=== PATIENT | female | born 1995 | race Hispanic/Latino ===

== ENCOUNTER 2020-09-18 17:52 | Emergency (ER) | payer OTHER, SELFPAY ==
[2020-09-18 18:01] VITALS: BP 134/87; PULSE 71; RESP 16; TEMP 36.8; O2SAT 97; BMI 32.0
--- NOTE | 2020-09-18 18:04 | ED.URI ---
HPI - URI/Sore Throat General Chief Complaint: Upper Respiratory Symptoms Stated Complaint: tonsils causing airway to close up Time Seen by Provider: 09/18/20 17:59 Source: patient Mode of arrival: Ambulatory Limitations: no limitations History of Present Illness HPI Narrative: 24-year-old female nonsmoker with noncontributory medical history presents from the walk-in clinic for evaluation. She has had 2-3 days of worsening sore throat, difficulty swallowing. She has had no runny nose, sneezing or cough. She has had no fever. She denies nausea or vomiting. She is eating and drinking without difficulty and has no respiratory complaints. MD Complaint: sore throat Onset (ago): day(s) Duration: constant Severity: moderate Relieving factors: nothing Exacerbating factors: swallowing Description of mucous: clear Able to tolerate fluids by mouth: Yes Associated symptoms: denies other symptoms Treatments prior to arrival: none Related Data Home Medications Medication Instructions Recorded Confirmed escitalopram oxalate 10 mg tablet 10 mg PO DAILY 09/18/20 09/18/20 Previous Rx's Medication Instructions Recorded ketorolac 10 mg PO Q6H PRN #14 tab 09/18/20 penicillin V potassium 500 mg PO BID #20 tab 09/18/20 Allergies Allergy/AdvReac Type Severity Reaction Status Date / Time No Known Drug Allergies Allergy Unverified 09/18/20 17:10 Review of Systems Constitutional Constitutional: Denies chills, Denies fatigue, Denies fever(s), Denies frequent falls, Denies lethargy and Denies weakness Eyes Eyes: Denies change in vision, Denies eye discharge, Denies irritation and Denies loss of vision ENT Ears, Nose, Mouth, and Throat: Denies change in voice, Denies dizziness, Denies neck pain, Reports sore throat and Reports throat swelling Cardiovascular Cardiovascular: Denies chest pain, Denies irregular heart rhythm, Denies lightheadedness, Denies palpitations, Denies dyspnea, Denies dyspnea on exertion and Denies orthopnea Respiratory Respiratory: Denies cough, Denies dyspnea, Denies dyspnea on exertion and Denies wheezing Gastrointestinal Gastrointestinal: Denies abdominal pain, Denies change in bowel habits, Denies diarrhea, Denies nausea and Denies vomiting Musculoskeletal Musculoskeletal: Denies neck pain and Denies numbness Integumentary/Breasts Skin/Breast: Denies pruritus, Denies erythema, Denies rash and Denies wounds Neurologic Neurologic: Denies behavioral changes, Denies confusion, Denies dizziness, Denies frequent falls, Denies loss of vision, Denies numbness and Denies weakness Psychiatric Psychiatric: Denies anxiety, Denies behavioral changes, Denies confusion, Denies depression, Denies homicidal ideation and Denies suicidal ideation Endocrine Endocrine: Denies fatigue, Denies flushing and Denies palpitations Hematologic/Lymphatic Hematologic/Lymphatic: Denies easy bruising Allergic/Immunologic Allergic/Immunologic: Denies urticaria, Reports throat swelling and Denies wheezing Patient History Medical History (Updated 09/18/20 @ 18:26 by Dung Alaniz DO) No active medical problems Social History Smoking Status: Current every day smoker Smoking Status: Current every day smoker alcohol intake frequency: holidays/special occasions only Substance Use Type: does not use Exam Narrative Exam Narrative: GEN: AOx3 and in mild distress EYES: Pupils are equal, round, and reactive to light and accommodation. Extraoccular muscles are intact bilaterally. There is no subconjunctival hemorrhage or exudate. ENT: Grade 4 tonsillar swelling, no erythema or exudate. Airway patent. Uvula midline. No obvious suggestion of CUSTOMER ACCOUNT REPRESENTATIVE. No neck swelling. No cervical lymphadenopathy. B/L TMs infante with normal landmarks, possible small left sided effusion. CHEST: Lungs are clear to auscultation bilaterally and free of wheezes, rales, or rhonchi. Heart rate is regular rhythm, there are no murmurs, clicks, rubs, or gallops. There is no chest wall tenderness. ABD: Abdomen is soft and nontender. There is no guarding or rebound. Bowel sounds are normal in all 4 quadrants. There is no mass or organomegaly. EXT: Full painless ROM of all extremities with no loss of sensation or strength. SKIN: Warm, pink, and dry. No erythema or rash Initial Vital Signs Initial Vital Signs: Vital Signs Temperature 98.2 F 09/18/20 18:01 Pulse Rate 71 09/18/20 18: Respiratory Rate 16 09/18/20 18:01 Blood Pressure 134/87 09/18/20 18:01 Pulse Oximetry 97 09/18/20 18:01 Course Course Course Narrative: patient tolerating oral hydration without trouble. No airway involvement. Stable vitals. No signs of sepsis. Very low suspicion of retropharyngeal or peritonsillar abscess based on exam extensive return precautions given and questions answered to her apparent satisfaction Orders Ordered: Discontinued Medications Dexamethasone (Dexamethasone 10 Mg/Ml Vial) 10 mg PO NOW ONE Stop: 09/18/20 18:21 Last Admin: 09/18/20 18:37 Dose: 10 mg Documented by: ALFONZO Penicillin V Potassium (Penicillin 250 Mg Tab Prepack) 1 bottle MISC SEEINSTR ONE Stop: 09/18/20 18:27 Last Admin: 09/18/20 18:37 Dose: 1 bottle Documented by: ALFONZO Vital Signs Vital signs: Vital Signs - 8 hr 09/18/20 18:01 Temperature 98.2 F Pulse Rate 71 Respiratory Rate 16 Blood Pressure 134/87 Pulse Oximetry 97 Discharge Plan Departure Patient Disposition: Home Clinical Impression: Tonsillar hypertrophy Pharyngitis Qualifiers: Pharyngitis/tonsillitis etiology: unspecified etiology Qualified Code(s): J02.9 - Acute pharyngitis, unspecified Instructions: DI for Pharyngitis/Tonsillopharyngitis -- Adult Activity Restrictions/Additional Instructions: *You have been diagnosed with [ tonsillitis, likely bacterial. ] *What to do: *Take medications as directed: Prescriptions sent to [facility] at your request. *Follow up with your primary care provider in 2-3 days, call for an appointment. Let them know you were seen in the Emergency Department and that we ask that you be seen in follow up *Return to ER if you should have any new, worsening or concerning symptoms, such as [trouble breathing, inability to swallow, persistent vomiting or other bothersome ] Prescriptions: New penicillin V potassium 500 mg tablet 500 mg PO BID Qty: 20 RF: 0 ketorolac 10 mg tablet 10 mg PO Q6H PRN (Reason: pain) Qty: 14 RF: 0 No Action escitalopram oxalate [Lexapro] 10 mg tablet 10 mg PO DAILY RF: 0 Referrals: Miscellaneous,Doctor, MD [Primary Care Provider] - Stand Alone Forms: Work Release Note
[2020-09-18] MEDS: PENICILLIN 250 MG TAB PREPACK 1 BOTTLE MISC (18:37)
[2020-09-18] MEDS: DEXAMETHASONE 10 MG/ML VIAL PO (18:37)
== END 2020-09-18 18:48 | disposition home or self-care (01) ==
PROVIDERS: Emergency Provider Emergency Medicine
DX: J02.9 Acute pharyngitis, unspecified (principal); Z20.822 Contact with and (suspected) exposure to COVID-19
CPT/HCPCS: 87070; 87635; 99281; 99283; J1100

== ENCOUNTER 2020-10-04 15:08 | Emergency (ER) | payer OTHER, SELFPAY ==
[2020-10-04 15:15] VITALS: BP 159/97; PULSE 91; RESP 18; TEMP 36.9; O2SAT 100
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
[2020-10-04 17:59] VITALS: BP 142/80; PULSE 90; RESP 16; O2SAT 96
--- NOTE | 2020-10-04 18:00 | PC.NURSE ---
Pt provided labeled paper sacks for clothing.
== END 2020-10-04 18:01 | disposition home or self-care (01) ==
PROVIDERS: Emergency Provider Emergency Medicine
DX: T76.21XA Adult sexual abuse, suspected, initial encounter (principal)
CPT/HCPCS: 99284

== ENCOUNTER → 2021-01-14 10:02 | Outpatient (CLI) | payer OTHER, SELFPAY ==
[2021-01-14 10:53] LABS: COVID19 -Nasal RAPID Negative (Negative)
== END ==
PROVIDERS: PCP Internal Medicine; Visit Provider Physician Assistant
DX: Z20.822 Contact with and (suspected) exposure to COVID-19 (principal)
CPT/HCPCS: 87635

== ENCOUNTER 2021-01-15 08:48 | Day surgery (SDC) | payer OTHER, SELFPAY ==
[2021-01-15] VITALS (12 sets, daily range): BP systolic 113–153; BP diastolic 73–97; PULSE 72–115; RESP 12–18; TEMP 36.6–37.4; O2SAT 88–100; BMI 31.8
[2021-01-15] MEDS: ACETAMINOPHEN 325 MG TABLET 975 MG PO (09:54)
[2021-01-15] MEDS: LACTATED RINGERS 1,000 ML 42 ML IV ×2 (09:55→12:32)
--- NOTE | 2021-01-15 10:34 | P.HP_ITS ---
History of Present Illness History of Present Illness Date Patient Seen: 01/15/21 Time Patient Seen: 10:35 Chief complaint: Chronic tonsillitis Narrative: 25-year-old female with chronic tonsillitis, respiratory obstruction and tonsillar hypertrophy, incompletely managed with medical therapy presents for tonsillectomy and possible adenoidectomy. She was last seen in clinic 11/05/2020, negative interval Holter monitor for any cardiac disease, cleared by Cardiology. Following discussion of the material risks benefits complications and alternatives, she elected to proceed. No recent cough, cold, or fever. No smoking or vaping. Patient History Medical History Anxiety Heart murmur No active medical problems Surgical History [place] teeth removed Family & Social History Social History: household members none Tobacco & Substance use: Smoking Status Never smoker alcohol intake current alcohol intake frequency holiday/special occasion Substance Use Type does not use Meds Home Medications and Allergies Home Medications Medication Instructions Recorded Confirmed Type escitalopram oxalate 10 mg tablet 20 mg PO DAILY 09/18/20 01/15/21 History etonogestrel [Nexplanon] See Rx Instructions .ROUTE .COMPLEX 01/15/21 01/15/21 History Allergies Allergy/AdvReac Type Severity Reaction Status Date / Time No Known Drug Allergies Allergy Verified 10/04/20 15:30 Review of Systems Review of Systems ROS: Yes All systems reviewed with the patient and are negative except as otherwise documented Exam Vital Signs (past 8 hours): - 01/15/21 10:00 Temperature 97.8 F Pulse Rate 75 Respiratory Rate 16 Blood Pressure 129/81 Pulse Oximetry 99 Oxygen Delivery Method Room Air Oxygen Flow Rate 0 Narrative Exam Narrative: Well-developed well-nourished female in no acute distress. 3+ right tonsil 2 to 3+ left. Heart regular rate and rhythm without murmur, lungs clear to auscultation bilaterally. Assessment & Plan Assessment & Plan narrative: Assessment: 1. Chronic tonsillitis 2. Upper airway obstruction 3. Tonsillar hypertrophy 4. Throat pain Plan: Following discussion of the material risks benefits complications and alternatives, the patient elected to proceed with tonsillectomy and possible adenoidectomy.
--- NOTE | 2021-01-15 10:34 | PM.PREOP ---
Pre-operative Note COVID-19 COVID-19 status: Result pending Interval Note History & Physical reviewed/Exam performed by Physician: Yes Changes to H&P: No
--- NOTE | 2021-01-15 10:37 | PM.OP.1 ---
Operative Date/Time/Diagnoses Date of procedure: 01/15/21 Time of procedure: 11:28 Pre-op diagnosis: Chronic tonsillitis, upper airway obstruction, tonsillar hypertrophy, throat pain Post-op diagnosis: same (Mild adenoid hypertrophy) Procedure & Clinicians Procedure: Tonsillectomy and adenoidectomy Same procedure as scheduled: Yes Indications: 25-year-old female with the above diagnoses, incompletely managed with medical therapy, presents to the above procedure. Following discussion of the material risks benefits complications and alternatives, she elected to proceed. Surgeon: Jorge Morelos Click Yes if Unassisted: Yes Anesthesia Type: General and Local Operative Notes Findings: Intact palate, bifid uvula, 3+ tonsils, 1+ adenoid tissue Closure Type: not applicable Specimen(s): none sent Estimated Blood Loss (mL): 20 Blood products transfused: none Procedure in detail: Following identification and confirmation of consent the patient was brought to the operating room suite and placed in the supine position. General endotracheal anesthesia was administered. A head wrap, shoulder roll, and mouth gag were placed and a red rubber catheter was inserted through the nostril and out the mouth to retract the soft palate. Minimally adenoid tissue was ablated with suction electrocautery on a setting of 40, without injury to the eustachian tube orifices or choana. The left tonsil was retracted medially and suction electrocautery on a setting of 30 was used to dissect the tonsil in a subcapsular plane, followed by hemostasis with the same. This process was repeated on the right side with identical findings. The tonsillar fossae were superficially infiltrated bilaterally with a 1:1 mixture of 1% lidocaine 1 100,000 epinephrine and 0.25% Marcaine 1 to [id number] epinephrine. Mouth gag and rubber catheter were removed and the patient was extubated in the operating room and taken to the recovery room in stable condition without known complication. Complications: none Post-operative Condition: stable Disposition: same day surgery Plan for aftercare: Tylenol alternating with Advil every 3 hours for pain control, oxycodone for breakthrough pain. Push fluids, no heavy lifting or straining for 2 weeks, soft diet 2 weeks.
--- NOTE | 2021-01-15 11:02 | SUR.OPER ---
Supine on padded OR bed, head on pillow, arms secured on padded arm boards at <90 degrees abduction, legs uncrossed, safety belt at thigh, tape over blanket over lower legs.
[2021-01-15] MEDS: BUPIVACAINE 0.25% W/ EPI 30 ML VIAL INJ (11:17)
[2021-01-15] MEDS: LIDOCAINE 1% W/EPI 20 ML INJ (11:17)
[2021-01-15] MEDS: OXYMETAZOLINE NASAL SPRAY 15 ML 2 SPRAYS NASAL (11:18)
[2021-01-15] MEDS: MEPERIDINE 50 MG/ML INJ 12.5 MG IV (11:50)
[2021-01-15] MEDS: NALOXONE 0.4 MG/ML VIAL IV (11:55)
--- NOTE | 2021-01-15 12:00 | SUR.PHASEI ---
1152 pt. began to violently shake and turn her head to the left one minute after receiving 12.5mg IV demerol. Pt. was nonresponsive and her eyes were rolled back. Extra help called to beside, anesthesia, surgeon, nurses and ancillary staff at bedside. Sternal rub provided no response from pt. blood sugar at 1155 97. face mask applied at 15ml and o2 100. pt. had PERLLA when checked by anesthesia at 1156 or so. pt. spontaneously awoke and was able to focus on staff and answer questions. ongoing monitoring.
[2021-01-15 12:19] LABS: Add Manual Diff / Slide Review NO; Basophils Absolute Auto 0 /uL (0-100); Basophils Percent Auto 0.4 % (0-2); Eosinophils Absolute Auto 0 /uL (0-450); Eosinophils Percent Auto 0.8 % (2-4); Hematocrit 37.3 % (36-46); Hemoglobin 12.3 g/dL (12.0-16.0); Lymphocytes Absolute Auto 2100 /uL (1100-4500); Lymphocytes Percent Auto 32.5 % (25-40); Mean Corpuscular HGB Conc 32.9 % (30-36); Mean Corpuscular Hemoglobin 30.3 PG (26-34); Mean Corpuscular Volume 92.2 fL (80-100); Monocytes Absolute Auto 400 /uL (0-900); Monocytes Percent Auto 5.8 % (3-14); Neutrophils Absolute Auto 3800 /uL (1500-7000); Neutrophils Percent Auto 60.5 % (50-75); Platelet Count 395 X10^3/uL (150-400); Red Blood Cell Count 4.05 X10^6/uL (4.0-5.2); Red Cell Distribution Width 13.2 % (11.6-14.8); White Blood Cell Count 6.3 X10^3/uL (4.5-11.0)
[2021-01-15 12:32] LABS: Alanine Aminotransferase 26 IU/L (<35); Albumin Globulin Ratio 1.3 (1.0-2.8); Alkaline Phosphatase 57 U/L (38-126); Aspartate Aminotransferase 27 IU/L (14-36); BUN Creatinine Ratio 21.4 (6-22); Bilirubin Total 0.2 mg/dL (0.2-1.3); Blood Urea Nitrogen 12 mg/dL (7-17); Calcium 8.4 mg/dL (8.4-10.2); Carbon Dioxide 26 mmol/L (22-32); Chloride 104 mmol/L (98-107); Estimated Glomerular Filt Rate > 60.0 mL/min (>60); Glucose 102 mg/dL (70-100); HEMOLYSIS < 15 (0-50); Sodium 137 mmol/L (137-145)
--- NOTE | 2021-01-15 13:48 | P.CONS_ITS ---
History of Present Illness Consult details Date Patient Seen: 01/15/21 Time Patient Seen: 13:10 Chief complaint: Chronic tonsillitis Requesting provider: Jorge Morelos Narrative: Ms. Anthony Blue is a 25W with PMH chronic tonsillitis, heart murmur, anxiety on escitalopram who came to [facility] today for scheduled outpatient surgery with Dr. Morelos for tonsil removal for chronic tonsillitis. Medicine is consulted for seizure like activity. She had no complications with surgery. In the PACU as she was waking up she was noted to begin having shivering episode. Because of this she was ordered for fentanyl and then meperidine. Approximately a minute after injection of meperidine she had an episode where she had seizure like activity. This was described to me by two providers as she had upper and lower extremity shaking, she was unresponsive, she had gaze deviation to the left, and her eyes rolled upwards. She had stable vitals during this period. This lasted a couple minutes and she then received narcan which stopped her convulsions. She was sleepy for approximately two minutes before waking up. During the surgery per notes lidocaine was used. Patient when I see her is completely back to baseline. Her vitals are normal. She says she has no seizure history. She has multiple family members with seizures, including one brother who is on medication. She has never had head trauma. She occasionally vapes nicotine. Otherwise she has no substance abuse. Meds Home Medications and Allergies Home Medications Medication Instructions Recorded Confirmed Type escitalopram oxalate 10 mg tablet 20 mg PO DAILY 09/18/20 01/15/21 History Nexplanon See Rx Instructions .ROUTE .COMPLEX 01/15/21 01/15/21 History Allergies Allergy/AdvReac Type Severity Reaction Status Date / Time No Known Drug Allergies Allergy Verified 10/04/20 15:30 Review of Systems Review of Systems Narrative: 14 systems reviewed and negative aside from HPI Exam Vital Signs (past 8 hours): - 01/15/21 10:00 01/15/21 11:42 01/15/21 11:47 Temperature 97.8 F 98.5 F Pulse Rate 75 103 H 96 H Respiratory Rate 16 12 12 Blood Pressure 129/81 150/88 H 147/87 H Pulse Oximetry 99 88 L 99 01/15/21 11:52 01/15/21 11:57 01/15/21 12:00 Temperature 99.3 F Pulse Rate 115 H 93 H 78 Respiratory Rate 18 16 16 Blood Pressure 153/97 H 137/81 Pulse Oximetry 100 100 100 01/15/21 12:12 01/15/21 12:15 01/15/21 12:20 Temperature Pulse Rate 78 72 76 Respiratory Rate 16 16 16 Blood Pressure 128/77 128/84 126/77 Pulse Oximetry 100 100 100 01/15/21 12:25 01/15/21 12:30 Temperature Pulse Rate 76 74 Respiratory Rate 12 16 Blood Pressure 127/83 135/96 H Pulse Oximetry 98 98 Oxygen Delivery Method Room Air Oxygen Flow Rate 10 Narrative Exam Narrative: GEN: no acute distress HEENT: moist mucous membranes, PERRL NECK: no JVD, trachea midline CV: regular rate and rhythm and no murmurs PULM: clear bilaterally ABD: soft, nontender, nondistended, with no organomegaly, normal bowel sounds EXT: warm and well perfused with no edema SKIN: no rashes NEURO: AAOx3, she has CN 2-12 intact. Normal upper and lower extremity strength intact. Sensation intact. No neurologic cerbellar signs. Speaking fluently. PSYCH: pleasant mood, cooperative Objective Labs Result Diagrams: 01/15/21 12:08 01/15/21 12:08 Labs: Laboratory Results - last 24 hr 01/15/21 01/15/21 12:08 12:08 WBC 6.3 RBC 4.05 Hgb 12.3 Hct 37.3 MCV 92.2 MCH 30.3 MCHC 32.9 RDW 13.2 Plt Count 395 Neut % (Auto) 60.5 Lymph % (Auto) 32.5 [place] % (Auto) 5.8 Eos % (Auto) 0.8 L Baso % (Auto) 0.4 Neut # (Auto) 3800 Lymph # (Auto) 2100 [place] # (Auto) 400 Eos # (Auto) 0 Baso # (Auto) 0 Sodium 137 Potassium 4.0 Chloride 104 Carbon Dioxide 26 BUN 12 Creatinine 0.56 Estimated GFR > 60.0 BUN/Creatinine Ratio 21.4 Glucose 102 H Calcium 8.4 Total Bilirubin 0.2 AST 27 ALT 26 Alkaline Phosphatase 57 Total Protein 7.0 Albumin 4.0 Globulin 3.0 Albumin/Globulin Ratio 1.3 Assessment & Plan Assessment & Plan narrative: Ms. Anthony Blue is a 25W with PMH of anxiety who presented for outpatient tonsillectomy and in PACU was found to have seizure-like activity. 1. Probable seizure - Per reports from other providers this does sound like seizure activity. While the etiology isn't certain most likely etiology is opiates. Her demerol is less likely the cause as she had a seizure nearly immediately after injection and demerol related seizures are usually delayed due to metabolite. However she did receive IV opiates in the perioperative setting including fentanyl which has been described to cause seizures. Given her resolution with narcan would suspect opiates as the most likely etiology. In addition, lidocaine is sometimes noted to cause seizures, however this was used in the operative setting and seems unlikely due to delayed time course. Patient is now back to normal, she had CBC, CMP, glucose that were normal. No neurologic findings. She had quick resolution of seizures. She has no seizure history herself. Given this at this point I do not think she needs further workup and can be discharged home. She does not need to be started on antiepileptics at this time. She can follow up with her PCP within the next week. IVF: per surgery team DIET: per surgery team DVT ppx: per surgery team CODE: Full, contact is friend Remberto Cutler
== END 2021-01-15 14:10 | disposition home or self-care (01) ==
PROVIDERS: Anesthesiology; PCP Internal Medicine; Referring Provider Otolaryngology; Visit Provider Otolaryngology
PROC: (CPT 42821; principal; 2021-01-15 10:45)
DX: J35.03 Chronic tonsillitis and adenoiditis (principal); J98.8 Other specified respiratory disorders; Z72.0 Tobacco use; G40.89 Other seizures
CPT/HCPCS: 42821; 80053; 81025; 85025; J0330; J1100; J2175; J2250; J2310; J2405; J2704; J3010

== ENCOUNTER 2023-05-24 09:17 | Emergency (ER) | payer OTHER, SELFPAY ==
[2023-05-24 09:22] VITALS: BP 130/78; PULSE 73; RESP 14; TEMP 36.5; O2SAT 98; BMI 34.7
[2023-05-24 09:44] VITALS: PULSE 80; O2SAT 99
[2023-05-24 09:47] VITALS: BP 129/74; PULSE 75; O2SAT 99
--- NOTE | 2023-05-24 09:50 | PC.NURSE ---
Pt states that she was laying in bed and her boyfriend noticed that she was making jerky movements and her eyes were detention open. Pt states that she remembers responding to boyfriend's touch and able to ambulate to bathroom after event. She states that she has added melatonin to her night time medications and take clonadine for an ongoing tick.
[2023-05-24 10:00] VITALS: PULSE 71; O2SAT 99
[2023-05-24 10:30] VITALS: BP 130/64; PULSE 70; O2SAT 99
--- NOTE | 2023-05-24 10:39 | ED_ITS ---
HPI - Seizure General Chief Complaint: Seizure Stated Complaint: had seizure T-1/twitchy Time Seen by Provider: 05/24/23 10:29 Source: patient Mode of arrival: Ambulatory Limitations: no limitations History of Present Illness HPI Narrative: Patient 27-year-old healthy female presents today with twitching. She reports that she was sleeping last night next to her boyfriend when she apparently woke her boyfriend up from her hand shaking. He notes her eyes were slightly open will sleeping unknown how long it lasted. She is no history of known seizures. She did not bite her tongue there was no urinary incontinence. She reports that her brother and sister both have diagnosed seizure history however she was tested for some point she did not have seizures. This morning she feels like she still is twitching. She has some obvious bilateral tremors and reports that her face is twitching as well. She admits to drinking alcohol daily about 1 glass of wine or 1 glass of stridor. She reports that her glass of wine is not to the top. She is not had a drink of alcohol in over a week and a half. Related Data Home Medications Medication Instructions Recorded Confirmed escitalopram oxalate 10 mg tablet 20 mg PO DAILY 09/18/20 01/15/21 (Lexapro) etonogestrel 68 mg subdermal See Rx Instructions .Route .COMPLEX 01/15/21 01/15/21 implant (Nexplanon) Allergies Allergy/AdvReac Type Severity Reaction Status Date / Time No Known Drug Allergies Allergy Verified 05/24/23 09:22 Review of Systems Review of Systems ROS Unobtainable: All systems reviewed & are unremarkable except as noted in HPI and below Patient History Medical History Anxiety Heart murmur No active medical problems Surgical History [place] teeth removed Family History Brother Seizure Social History household members: none other: occasionally vapes nicotine Smoking Status: Current every day smoker alcohol intake: current Smoking Status: Current every day smoker tobacco type: vaping alcohol intake frequency: holidays/special occasions only Substance Use Type: does not use Exam Initial Vital Signs Initial Vital Signs: Vital Signs Temperature 97.7 F 05/24/23 09:22 Pulse Rate 73 05/24/23 09:22 Respiratory Rate 14 05/24/23 09:22 Blood Pressure 130/78 05/24/23 09:22 Pulse Oximetry 98 05/24/23 09:22 Oxygen Delivery Method Room Air 05/24/23 09:22 GENERAL: Alert pleasant well-appearing 27-year-old female and in no acute distress. HEENT: Head atraumatic,EOMI, pupils reactive, face symmetric, mucous membranes CARDIOVASCULAR: Regular rate and rhythm without murmurs, rubs or gallops. RESPIRATORY: Breath sounds equal bilaterally, no wheezes rales or rhonchi. ABDOMEN: Soft, nontender. Normoactive bowel sounds all 4 quadrants. No guarding or rebound. EXTREMITIES: Normal range of motion, no clubbing or edema. Neurovascularly intact NEUROLOGICAL: Alert and oriented x4.Normal gait and speech. Bilateral tremors in hands. Right face around the eye is noted be twitching as well when she smiles but face is symmetric no droop. SKIN: Warm, dry, no laceration, no petechiae, no rashes or lesions. Course Orders Ordered: ED Orders 05/24/23 10:50 CBC Auto Diff [Complete Blood Count AUTO DIFF] Stat CMP [Comprehensive Metabolic Panel] Stat MAG [Magnesium] Stat Discontinued Medications Lorazepam (Lorazepam 0.5 Mg Tablet) 0.5 mg PO NOW ONE Stop: 05/24/23 11:58 Last Admin: 05/24/23 12:27 Dose: 0.5 mg Documented By: MACARIO Vital Signs Vital signs: Vital Signs - 8 hr 05/24/23 09:22 05/24/23 09:44 05/24/23 09:47 Temperature 97.7 F Pulse Rate 73 80 Respiratory Rate 14 Blood Pressure 130/78 129/74 Pulse Oximetry 98 99 Oxygen Delivery Method Room Air 05/24/23 09:47 05/24/23 10:00 05/24/23 10:30 Temperature Pulse Rate 75 71 70 Respiratory Rate Blood Pressure 130/64 Pulse Oximetry 99 99 99 Oxygen Delivery Method MDM - Seizure Lab Data 05/24/23 10:50 05/24/23 10:50 Labs: Lab Results 05/24/23 05/24/23 Range/Units 10:50 10:50 WBC 4.6 (4.5-11.0) X10^3/uL RBC 3.92 L (4.0-5.2) X10^6/uL Hgb 11.9 L (12.0-16.0) g/dL Hct 35.5 L (36-46) % MCV 90.6 (80-100) fL MCH 30.4 (26-34) PG MCHC 33.6 (30-36) % RDW 14.0 (11.6-14.8) % Plt Count 453 H (150-400) X10^3/uL Neut % (Auto) 41.9 L (50-75) % Lymph % (Auto) 46.5 H (25-40) % Wheeler % (Auto) 9.6 (3-14) % Eos % (Auto) 1.3 L (2-4) % Baso % (Auto) 0.7 (0-2) % Neut # (Auto) 1900 (9982-0048) /uL Lymph # (Auto) 2200 (8144-3431) /uL Wheeler # (Auto) 400 (0-900) /uL Eos # (Auto) 100 (0-450) /uL Baso # (Auto) 0 (0-100) /uL Sodium 138 (137-145) mmol/L Potassium 3.6 (3.4-5.1) mmol/L Chloride 103 (98-107) mmol/L Carbon Dioxide 29 (22-32) mmol/L BUN 11 (7-17) mg/dL Creatinine 0.60 (0.52-1.04) mg/dL Estimated GFR > 60 (>60) mL/min BUN/Creatinine Ratio 18.3 (6-22) Glucose 84 (70-100) mg/dL Calcium 8.9 (8.4-10.2) mg/dL Magnesium 1.8 (1.6-2.3) mg/dL Total Bilirubin 0.4 (0.2-1.3) mg/dL AST 33 (14-36) IU/L ALT 25 (<35) IU/L Alkaline Phosphatase 51 (38-126) U/L Total Protein 7.4 (6.3-8.2) g/dL Albumin 4.2 (3.5-5.0) g/dL Globulin 3.2 (1.7-4.1) g/dL Albumin/Globulin Ratio 1.3 (1.0-2.8) Point of Care Testing Test Results Negative Glucose POC 100 Urine Dip Bedside Urine Glucose Negative Bedside Urine Bilirubin - Negative Bedside Urine Ketone - Negative Urine Specific Ava 1.020 Bedside Urine Occult Blood - Negative Bedside Urine pH 6.0 Bedside Urine Protein - Negative Bedside Urine Urobilinogen - Negative Bedside Urine Nitrite - Negative Bedside Urine Leukocytes - Negative Esterase MDM Narrative Medical decision making narrative: Patient is a healthy 27-year-old female without significant past medical history presenting with some twitching. Not concerning for seizure activity she is awake alert oriented no evidence of a partial or tonic-clonic seizure. E lectrolytes and magnesium are within normal limits. Not convinced this is alcohol withdrawal she is a week and a half sober. Although I did talk with her about it. She is given 0.5 mg of Ativan prior to discharge to give her a small break from the eye twitching. no need for imaging or further workup at this time.. Discharge Plan Departure Patient Disposition: Home Clinical Impression: Eye muscle twitches Instructions: DI for Psychogenic Nonepileptic Seizures Activity Restrictions/Additional Instructions: *You have been diagnosed with eye twitching *What to do: What you are experiencing is not a seizure. There is no significant electrolyte abnormality. *Continue to take medications as directed *Follow up with your primary care provider in 2-3 days or call [phone] *Return to ER if you should have loss of consciousness full shaking rigidity [or] any new, worsening or concerning symptoms Prescriptions: No Action escitalopram oxalate [Lexapro] 10 mg tablet 20 mg PO DAILY Nexplanon 68 mg Implant See Rx Instructions .ROUTE .COMPLEX Rx Instructions: 68 mg subdermally Referrals: Mabel Nicole MD [Primary Care Provider] - Stand Alone Forms: Patient Portal/API
[2023-05-24 11:13] LABS: Add Manual Diff / Slide Review NO; Basophils Absolute Auto 0 /uL (0-100); Basophils Percent Auto 0.7 % (0-2); Eosinophils Absolute Auto 100 /uL (0-450); Eosinophils Percent Auto 1.3 % (2-4); Hematocrit 35.5 % (36-46); Hemoglobin 11.9 g/dL (12.0-16.0); Lymphocytes Absolute Auto 2200 /uL (1100-4500); Lymphocytes Percent Auto 46.5 % (25-40); Mean Corpuscular HGB Conc 33.6 % (30-36); Mean Corpuscular Hemoglobin 30.4 PG (26-34); Mean Corpuscular Volume 90.6 fL (80-100); Monocytes Absolute Auto 400 /uL (0-900); Monocytes Percent Auto 9.6 % (3-14); Neutrophils Absolute Auto 1900 /uL (1500-7000); Neutrophils Percent Auto 41.9 % (50-75); Platelet Count 453 X10^3/uL (150-400); Red Blood Cell Count 3.92 X10^6/uL (4.0-5.2); White Blood Cell Count 4.6 X10^3/uL (4.5-11.0)
[2023-05-24 11:34] LABS: Alanine Aminotransferase 25 IU/L (<35); Albumin 4.2 g/dL (3.5-5.0); Albumin Globulin Ratio 1.3 (1.0-2.8); Alkaline Phosphatase 51 U/L (38-126); Aspartate Aminotransferase 33 IU/L (14-36); BUN Creatinine Ratio 18.3 (6-22); Bilirubin Total 0.4 mg/dL (0.2-1.3); Blood Urea Nitrogen 11 mg/dL (7-17); Calcium 8.9 mg/dL (8.4-10.2); Carbon Dioxide 29 mmol/L (22-32); Chloride 103 mmol/L (98-107); Estimated Glomerular Filt Rate > 60 mL/min (>60); Globulin 3.2 g/dL (1.7-4.1); Glucose 84 mg/dL (70-100); HEMOLYSIS < 15 (0-50); Magnesium 1.8 mg/dL (1.6-2.3); Potassium 3.6 mmol/L (3.4-5.1); Sodium 138 mmol/L (137-145); Total Protein 7.4 g/dL (6.3-8.2)
[2023-05-24] MEDS: LORazepam 0.5 MG TABLET PO (12:27)
--- NOTE | 2023-05-24 12:52 | PC.NURSE ---
Pt left before d/c vitals
== END 2023-05-24 12:52 | disposition home or self-care (01) ==
PROVIDERS: Emergency Provider Emergency Medicine; PCP Internal Medicine
DX: R25.3 Fasciculation (principal)
CPT/HCPCS: 36415; 80053; 81003; 81025; 82962; 83735; 85025; 99283

== ENCOUNTER → 2023-10-12 19:38 | Outpatient (CLI) | payer OTHER, SELFPAY ==
--- NOTE | 2023-10-12 | DI.MRI.S_ITS ---
PROCEDURE: MR HEAD/BRAIN WO/W CON INDICATIONS: UNSPECIFIED CONVULSIONS TECHNIQUE: Noncontrast axial T1 spin echo, axial T2 fast spin echo, sagittal and axial FLAIR, axial gradient echo, axial diffusion and ADC, coronal thin-slice T2 FSE through the brain. Optional contrast, followed by axial and coronal and sagittal 3D VIBE or T1 spin echo with fat saturation sequences through the brain. COMPARISON: None. FINDINGS: Image quality: Excellent. CSF spaces: Ventricles are normal in size and shape. Basal cisterns are patent. No extra-axial fluid collections. Brain: No intracranial bleeds or mass effects. No abnormal intracranial enhancement. Galdamez-white matter interface appears intact. Diffusion weighted images demonstrate no acute ischemic insults. Brainstem appear normal. Normal intravascular flow voids are present. The hippocampal regions appear normal and symmetric in morphology. Skull and face: Calvarial marrow signal is normal. Orbits appear normal. Sinuses: Sinuses and mastoids are clear. IMPRESSION: No cause for patient's symptoms is identified. No acute intracranial abnormalities. Normal MRI of the brain. Dictated by: Matty Doshi M.D. on 10/13/2023 at 9:58 Approved by: Matty Doshi M.D. on 10/13/2023 at 10:02
== END ==
PROVIDERS: PCP Internal Medicine; Referring Provider General Practice; Visit Provider General Practice
DX: R56.9 Unspecified convulsions (principal)
CPT/HCPCS: 70553

== ENCOUNTER 2023-11-02 14:22 | Emergency (ER) | payer OTHER, SELFPAY ==
[2023-11-02] VITALS (9 sets, daily range): BP systolic 114–132; BP diastolic 55–69; PULSE 81–93; RESP 15–25; TEMP 37.2; O2SAT 97–100; BMI 36.9
[2023-11-02] MEDS: levETIRAcetam 1,000 MG in SODIUM CHLORIDE 0.9% 100 ML 440 MG IV (14:44)
--- NOTE | 2023-11-02 14:59 | ED.SEIZURE ---
HPI - Seizure General Chief Complaint: Seizure Stated Complaint: seizure Time Seen by Provider: 11/02/23 14:51 Source: patient and EMS Mode of arrival: EMS Limitations: no limitations History of Present Illness HPI Narrative: 28-year-old woman with 2 reported grand mal seizures today, both resolved without additional intervention. History of seizures initially starting in 2020. She is currently being worked up for psychogenic nonepileptic seizures and has an appointment with Neurology for an EEG next month. She had a brain MRI at [facility] on October 12 that was unremarkable. She currently is on Keppra. Does not describe significant stressors or anxieties. She has not currently on control and fall not actively trying to get would not mind if she were to be . She believes she is not currently . There has been no significant sleep disturbances. She notes that she did not take her Keppra last night which is unusual for her. She did take her dose this morning. On days when she does have seizures friends and coworkers note that she often has an increase in tics which present for her almost like hiccups. She has had no recent fever, cough, chills, viral symptoms, no vomiting, diarrhea, abdominal pain, chest pain, palpitations or headache Related Data Home Medications Medication Instructions Recorded Confirmed escitalopram oxalate 10 mg tablet 20 mg PO DAILY 09/18/20 01/15/21 (Lexapro) etonogestrel 68 mg subdermal See Rx Instructions .Route .COMPLEX 01/15/21 01/15/21 implant (Nexplanon) Allergies Allergy/AdvReac Type Severity Reaction Status Date / Time No Known Drug Allergies Allergy Verified 05/24/23 09:22 Review of Systems Review of Systems Narrative: Pertinent positive and negative findings as per HPI Patient History Medical History (Updated 11/02/23 @ 16:33 by Kath Nelson MD) Seizures Anxiety Heart murmur No active medical problems Surgical History [place] teeth removed Family History Brother Seizure Social History household members: none other: occasionally vapes nicotine Smoking Status: Current every day smoker alcohol intake: current Smoking Status: Current every day smoker tobacco type: vaping alcohol intake frequency: 0-2 drinks per day Substance Use Type: does not use Exam Initial Vital Signs Initial Vital Signs: Vital Signs Pulse Rate 90 11/02/23 14:27 Pulse Oximetry 97 11/02/23 14:27 Oxygen Delivery Method Room Air 11/02/23 14:27 General: Healthy appearing, in no acute distress. Able to give a complete and coherent history. Well-nourished well-developed HEENT: Moist mucous membranes, normal sclera with reactive pupils, Respiratory: Lungs are clear to auscultation, no wheezing no rales no rhonchi. Full and symmetrical air movement Cardiac: Regular rate and rhythm no murmurs no bruits Abdomen: Soft, nontender, good bowel tones, no flank pain Skin: Warm and dry, no rashes Neurologic: Grossly neurologically intact with no obvious asymmetries or abnormalities, reflexes are brisk in upper and lower extremities. She does not have clonus. Extremities: No trauma, well perfused Psych: Cooperative, appropriate insight and affect Course Orders Ordered: ED Orders 11/02/23 14:36 Complete Blood Count AUTO DIFF Stat Comprehensive Metabolic Panel Stat Levetiracetam Keppra Stat Lipase Stat Discontinued Medications Levetiracetam 1,000 mg/ Sodium (Chloride) 110 mls @ 440 mls/hr IV NOW ONE Stop: 11/02/23 14:30 Last Infusion: 11/02/23 15:07 Dose: Infused Documented By: Admin: 11/02/23 14:44 Dose: 440 mls/hr Documented By: LEATHA Vital Signs Vital signs: Vital Signs - 8 hr 11/02/23 14:27 11/02/23 14:28 11/02/23 14:28 Temperature Pulse Rate 90 84 Respiratory Rate 22 Blood Pressure 125/69 Pulse Oximetry 97 98 Oxygen Delivery Method Room Air 11/02/23 14:30 11/02/23 14:30 11/02/23 14:46 Temperature 98.9 F Pulse Rate 82 91 H Respiratory Rate 15 20 Blood Pressure 130/61 130/61 Pulse Oximetry 98 100 Oxygen Delivery Method Room Air 11/02/23 15:00 11/02/23 15:00 11/02/23 15:30 Temperature Pulse Rate 83 82 Respiratory Rate 25 H 24 Blood Pressure 132/60 Pulse Oximetry 98 99 Oxygen Delivery Method 11/02/23 15:30 Temperature Pulse Rate Respiratory Rate Blood Pressure 117/55 L Pulse Oximetry Oxygen Delivery Method MDM - Seizure Lab Data 11/02/23 14:36 11/02/23 14:36 Labs: Lab Results 11/02/23 Range/Units 14:36 WBC 6.2 (4.5-11.0) X10^3/uL RBC 4.18 (4.0-5.2) X10^6/uL Hgb 12.4 (12.0-16.0) g/dL Hct 36.8 (36-46) % MCV 88.2 (80-100) fL MCH 29.8 (26-34) PG MCHC 33.8 (30-36) % RDW 13.6 (11.6-14.8) % Plt Count 393 (150-400) X10^3/uL Neut % (Auto) 55.0 (50-75) % Lymph % (Auto) 35.3 (25-40) % Dewey % (Auto) 7.9 (3-14) % Eos % (Auto) 1.3 L (2-4) % Baso % (Auto) 0.5 (0-2) % Neut # (Auto) 3400 (9402-6768) /uL Lymph # (Auto) 2200 (3733-3062) /uL Dewey # (Auto) 500 (0-900) /uL Eos # (Auto) 100 (0-450) /uL Baso # (Auto) 0 (0-100) /uL Sodium 137 (137-145) mmol/L Potassium 3.5 (3.4-5.1) mmol/L Chloride 105 (98-107) mmol/L Carbon Dioxide 39 H (22-32) mmol/L BUN 10 (7-17) mg/dL Creatinine 0.57 (0.52-1.04) mg/dL Estimated GFR > 60 (>60) mL/min BUN/Creatinine Ratio 17.5 (6-22) Glucose 98 (70-100) mg/dL Calcium 8.8 (8.4-10.2) mg/dL Total Bilirubin 0.4 (0.2-1.3) mg/dL AST 25 (14-36) IU/L ALT 25 (<35) IU/L Alkaline Phosphatase 76 (38-126) U/L Total Protein 7.5 (6.3-8.2) g/dL Albumin 4.2 (3.5-5.0) g/dL Globulin 3.3 (1.7-4.1) g/dL Albumin/Globulin Ratio 1.3 (1.0-2.8) Lipase 115 (23-300) U/L MDM Narrative Medical decision making narrative: CC: Seizure Complicating co-morbidities: Currently under the care of physicians for seizures since 2020. She does take Keppra. She has noted an increased intensity and frequency of seizures in the last 2 months. She has not appointment with Neurology next month for an EEG. Currently trying to figure out if these are epileptic or psychogenic nonepileptic seizures. Data collected from: patient, ernie Medical records reviewed: ER records and and hospital records from tonsillectomy in 2020 are reviewed Differential considered: Seizure, unclear if this is epileptic or psychogenic. These do appear to be similar to her baseline. Tumor, mass, infection, meningitis Exam documented above, pertinent findings include: Exam is entirely unremarkable. She is minimally hyperreflexic without any clonus appreciated she does not have any bite atkinson on her tongue Lab Test results independently reviewed as above. Pertinent findings: CBC is unremarkable Chemistries are reassuring Imaging studies independently reviewed: Brain MRI from October 12 is reviewed and does not show any acute abnormalities Treatments: She has given a g of IV Keppra Re-evaluations: Patient is re-evaluated and is feeling well. Has no additional questions Discussion: 28-year-old woman with seizures diagnosed in 2020. Unclear if they are epileptic or psychogenic. Currently on Keppra. Keppra dose was given IV and Keppra level was drawn and will need to be followed outpatient. [facility] is [facility] [place] [facility] has not appointment with Neurology coming up in the next couple of weeks for EEG. There was no signs of additional injury, no obvious triggers for increased seizure activity other than the missed dose of Keppra last night. Patient is aware of precautions, questions are answered and she is safe for discharge with follow up plan is already outlined. Discharge Plan Departure Patient Disposition: Home Clinical Impression: Generalized seizure Instructions: DI for Seizure (Not Epilepsy/Seizure Disorder) Activity Restrictions/Additional Instructions: Thank you for coming in today I am sorry that you are having more frequent seizures over the last couple of months. I am glad you are working with your regular doctor and have an appointment with Neurology coming up in the future. I did not find anything significantly abnormal with your workup. Certainly no obvious abnormalities that might explain the seizures today. Please make sure you do continue your Keppra as prescribed. You were given an additional g of Keppra IV in the emergency department. I did draw a Keppra level that your doctor can follow up on as an outpatient If you find that you are getting worse or develop any new symptoms, please feel free to return to the emergency department for further evaluation. Prescriptions: No Action escitalopram oxalate [Lexapro] 10 mg tablet 20 mg PO DAILY Nexplanon 68 mg Implant See Rx Instructions .ROUTE .COMPLEX Rx Instructions: 68 mg subdermally Referrals: Mabel Nicole MD [Primary Care Provider] - Stand Alone Forms: Patient Portal/API
[2023-11-02 15:02] LABS: Add Manual Diff / Slide Review NO; Basophils Absolute Auto 0 /uL (0-100); Basophils Percent Auto 0.5 % (0-2); Eosinophils Absolute Auto 100 /uL (0-450); Eosinophils Percent Auto 1.3 % (2-4); Hematocrit 36.8 % (36-46); Hemoglobin 12.4 g/dL (12.0-16.0); Lymphocytes Absolute Auto 2200 /uL (1100-4500); Lymphocytes Percent Auto 35.3 % (25-40); Mean Corpuscular HGB Conc 33.8 % (30-36); Mean Corpuscular Hemoglobin 29.8 PG (26-34); Mean Corpuscular Volume 88.2 fL (80-100); Monocytes Absolute Auto 500 /uL (0-900); Monocytes Percent Auto 7.9 % (3-14); Neutrophils Absolute Auto 3400 /uL (1500-7000); Platelet Count 393 X10^3/uL (150-400); Red Blood Cell Count 4.18 X10^6/uL (4.0-5.2); Red Cell Distribution Width 13.6 % (11.6-14.8); White Blood Cell Count 6.2 X10^3/uL (4.5-11.0)
[2023-11-02 15:07] LABS: Alanine Aminotransferase 25 IU/L (<35); Albumin 4.2 g/dL (3.5-5.0); Albumin Globulin Ratio 1.3 (1.0-2.8); Alkaline Phosphatase 76 U/L (38-126); Aspartate Aminotransferase 25 IU/L (14-36); BUN Creatinine Ratio 17.5 (6-22); Bilirubin Total 0.4 mg/dL (0.2-1.3); Blood Urea Nitrogen 10 mg/dL (7-17); Calcium 8.8 mg/dL (8.4-10.2); Carbon Dioxide 39 mmol/L (22-32); Chloride 105 mmol/L (98-107); Estimated Glomerular Filt Rate > 60 mL/min (>60); Globulin 3.3 g/dL (1.7-4.1); Glucose 98 mg/dL (70-100); HEMOLYSIS 23 (0-50); Lipase 115 U/L (23-300); Potassium 3.5 mmol/L (3.4-5.1); Sodium 137 mmol/L (137-145); Total Protein 7.5 g/dL (6.3-8.2)
[2023-11-04 11:55] LABS: Levetiracetam Keppra 5.2 ug/mL (10.0-40.0)
== END 2023-11-02 17:00 | disposition home or self-care (01) ==
PROVIDERS: Emergency Provider Emergency Medicine; PCP Internal Medicine
DX: G40.89 Other seizures (principal)
CPT/HCPCS: 36415; 80053; 80177; 81025; 83690; 85025; 96365; 99284; J1953

== ENCOUNTER → 2024-01-27 08:07 | Outpatient (CLI) | payer OTHER, SELFPAY ==
--- NOTE | 2024-01-27 08:30 | DI.US.S_ITS ---
PROCEDURE: US OB <= 14 WEEKS FETUS INDICATIONS: Dating and viability OUTSIDE/PRIOR DATING DATA: Last menstrual period (LMP): 11/18/2023. LMP-based estimated date of delivery (FAB): 08/24/2024. First dating scan (date and location): 01/27/2024. Estimated date of delivery (FAB) from first dating scan: 08/22/2024. TECHNIQUE: Real-time scanning was performed of the fetus and maternal pelvic organs, with image documentation. Endovaginal scanning was also performed to better visualize the fetus and maternal ovaries. COMPARISON: None. FINDINGS: Yolk sac is seen. Mean gestational sac diameter is 4.8 cm. Cervical length is 4.6 cm. A right corpus luteum cyst is present. heart rate is 163 beats per minute. Gardners-rump length is 3.4 cm corresponding to an ultrasound age of 10 weeks and 2 days. IMPRESSION: Living intrauterine gestation at an ultrasound age of 10 weeks and 2 days. Dictated by: Joey Zambrano M.D. on 01/27/2024 at 12:42 Approved by: Joey Zambrano M.D. on 01/27/2024 at 12:44
== END ==
LOC: US 08:08
PROVIDERS: Referring Provider Obstetrics & Gynecology; Visit Provider Obstetrics & Gynecology
DX: Z34.01 Encounter for supervision of normal first pregnancy, first trimester (principal); Z3A.10 10 weeks gestation of pregnancy
CPT/HCPCS: 76801; 76817

== ENCOUNTER → 2024-02-17 15:23 | Outpatient (CLI) | payer OTHER, SELFPAY ==
[2024-02-17 17:00] LABS: Add Manual Diff / Slide Review NO; Basophils Absolute Auto 0 /uL (0-100); Basophils Percent Auto 0.3 % (0-2); Eosinophils Absolute Auto 100 /uL (0-450); Eosinophils Percent Auto 1.5 % (2-4); Hematocrit 38.6 % (36-46); Hemoglobin 13.1 g/dL (12.0-16.0); Lymphocytes Absolute Auto 2300 /uL (1100-4500); Lymphocytes Percent Auto 29.5 % (25-40); Mean Corpuscular HGB Conc 33.9 % (30-36); Mean Corpuscular Hemoglobin 30.6 PG (26-34); Monocytes Absolute Auto 500 /uL (0-900); Monocytes Percent Auto 6.7 % (3-14); Neutrophils Absolute Auto 4800 /uL (1500-7000); Platelet Count 480 X10^3/uL (150-400); Red Blood Cell Count 4.29 X10^6/uL (4.0-5.2); Red Cell Distribution Width 13.6 % (11.6-14.8); White Blood Cell Count 7.8 X10^3/uL (4.5-11.0)
[2024-02-17 17:01] LABS: Natera Collection Specimen Collected
[2024-02-17 20:44] LABS: Urine N gonorrhoeae NOT DETECTED
[2024-02-17 20:47] LABS: Urine Chlamydia NOT DETECTED
[2024-02-18 06:17] LABS: RPR Screen Non Reactive (Non Reactive)
[2024-02-18 08:18] LABS: Varicella IgG Antibody 1247 index (Immune >165)
[2024-02-20 17:36] LABS: Hepatitis B Surface Antigen NEGATIVE s/c (NEGATIVE); Rubella Antibody IgG 32.4 IU/mL (>15)
[2024-02-20 17:46] LABS: HIV 1 & 2 Ab/Ag 4th Gen Combo NEGATIVE (NEGATIVE); Hep C Virus Ab w/Reflex Quant NEGATIVE s/c (NEGATIVE)
== END ==
PROVIDERS: Referring Provider Obstetrics & Gynecology; Visit Provider Obstetrics & Gynecology
DX: Z34.02 Encounter for supervision of normal first pregnancy, second trimester (principal); Z3A.13 13 weeks gestation of pregnancy
CPT/HCPCS: 80055; 86787; 86803; 86850; 86900; 86901; 87389; 87491; 87591

== ENCOUNTER → 2024-03-16 15:13 | Outpatient (CLI) | payer OTHER, SELFPAY | PROVIDERS: Referring Provider Obstetrics & Gynecology; Visit Provider Obstetrics & Gynecology | DX: Z34.82 Encounter for supervision of other normal pregnancy, second trimester (principal); Z3A.17 17 weeks gestation of pregnancy; Z36.0 Encounter for antenatal screening for chromosomal anomalies | CPT/HCPCS: 36415; 82105; 87086 ==

== ENCOUNTER → 2024-03-29 12:51 | Outpatient (CLI) | payer OTHER, SELFPAY ==
[2024-03-29 14:01] LABS: Erythrocyte Sedimentation Rate 37 MM/HR (0-20)
[2024-03-29 14:22] LABS: C-Reactive Protein Quant 0.6 mg/dL (<1.0)
[2024-03-29 14:25] LABS: Rheumatoid Factor < 8.6 IU/mL (<12.0)
[2024-04-03 13:36] LABS: ANA Screen, IFA Negative (.)
[2024-04-04 13:36] LABS: Dilute Russell Viper Venom 30.8 sec (0.0-47.0); Lupus Reflex Interpretation Comment: (.); PTT-LA 35.1 sec (0.0-43.5)
== END ==
PROVIDERS: Referring Provider Obstetrics & Gynecology; Visit Provider Obstetrics & Gynecology
DX: M25.50 Pain in unspecified joint (principal)
CPT/HCPCS: 36415; 85598; 85613; 85651; 86038; 86140; 86430

== ENCOUNTER → 2024-04-05 14:11 | Outpatient (CLI) | payer OTHER, SELFPAY ==
--- NOTE | 2024-04-05 14:12 | DI.US.S_ITS ---
PROCEDURE: US OB >= 14 WEEKS FETUS INDICATIONS: 20 weeks anatomy scan OUTSIDE/PRIOR DATING DATA: Last menstrual period (LMP): 11/18/2023 LMP-based estimated date of delivery (FAB): 08/24/2024. First dating scan (date and location): 01/27/2024. Estimated date of delivery (FAB) from first dating scan: 08/22/2024. TECHNIQUE: Real-time scanning was performed of the fetus, with image documentation and biometric measurements. Endovaginal scanning: No COMPARISON: None. FINDINGS: General: A single living intrauterine gestation is present. Presentation: Breech. Placenta: Placental position is posterior , without previa. Amniotic fluid index: 17.5 cm, normal range is 5-24 cm. Single deepest vertical pocket is 5.3 cm. heart rate: 143 beats per minute. Maternal cervical canal: 4.4 cm long. Normal lower limit is 2.5 cm. biometrics: Biparietal diameter: 5.0 cm, 21 week 1 day Head circumference: 18.2 cm, 20 week 4 day Abdominal circumference: 16.6 cm, 21 week 5 day Femur length: 3.4 cm, 20 week 4 day Clinically estimated gestational age: 19 week 6 day Composite gestational age from present scan: 21 week 0 day Estimated weight and percentile: 400 g, 97 percentile Anatomic survey: Neuro: Ventricles are non-dilated at less than 10 mm. Cisterna magna is normal at 3-11 mm. Cerebellum is normal in size and morphology. Nuchal skin fold: Normal at less than 6 mm between 14-21 weeks gestational age. Face: Nose and lips, facial profile are normal. Spine: No evidence for spina bifida. Heart: 4-chambered heart is present, with normal ventricular outflow tracts. Diaphragm: Diaphragm is intact. Stomach: Left-sided stomach is present. Kidneys: No hydronephrosis. Normal is less than 5 mm in 2nd trimester, less than 7 mm in 3rd trimester. Cord: 3-vessel cord has orthotopic insertion. Bladder: Normal in size. Extremities: All 4 extremities identified. IMPRESSION: Single live intrauterine consistent with a 21 week 0 day gestation by current ultrasound. Normal anatomic survey Approved by: Sarthak Marte M.D. on 04/05/2024 at 17:30
== END ==
PROVIDERS: Referring Provider Obstetrics & Gynecology; Visit Provider Obstetrics & Gynecology
DX: Z34.02 Encounter for supervision of normal first pregnancy, second trimester (principal); Z3A.21 21 weeks gestation of pregnancy
CPT/HCPCS: 76811

== ENCOUNTER → 2024-04-30 14:59 | Outpatient (CLI) | payer OTHER, SELFPAY ==
[2024-04-30 17:36] LABS: Add Manual Diff / Slide Review NO; Basophils Absolute Auto 0 /uL (0-100); Basophils Percent Auto 0.3 % (0-2); Eosinophils Absolute Auto 100 /uL (0-450); Eosinophils Percent Auto 1.2 % (2-4); Hematocrit 32.7 % (36-46); Hemoglobin 11.4 g/dL (12.0-16.0); Lymphocytes Absolute Auto 2200 /uL (1100-4500); Lymphocytes Percent Auto 26.4 % (25-40); Mean Corpuscular HGB Conc 34.9 % (30-36); Mean Corpuscular Hemoglobin 31.6 PG (26-34); Mean Corpuscular Volume 90.6 fL (80-100); Monocytes Absolute Auto 800 /uL (0-900); Monocytes Percent Auto 9.2 % (3-14); Neutrophils Absolute Auto 5200 /uL (1500-7000); Neutrophils Percent Auto 62.9 % (50-75); Platelet Count 456 X10^3/uL (150-400); Red Blood Cell Count 3.61 X10^6/uL (4.0-5.2); Red Cell Distribution Width 13.6 % (11.6-14.8); White Blood Cell Count 8.3 X10^3/uL (4.5-11.0)
[2024-04-30 18:31] LABS: Creatinine Urine Random 71.84 mg/dL; Protein (Total) Urine Random 12 mg/dL (0-12); Protein Creatinine Ratio Urine 0.16 GRAM/24H
[2024-04-30 18:35] LABS: Alanine Aminotransferase 28 IU/L (<35); Albumin 3.7 g/dL (3.5-5.0); Albumin Globulin Ratio 1.3 (1.0-2.8); Alkaline Phosphatase 66 U/L (38-126); Aspartate Aminotransferase 23 IU/L (14-36); BUN Creatinine Ratio 15.6 (6-22); Bilirubin Total 0.3 mg/dL (0.2-1.3); Blood Urea Nitrogen 7 mg/dL (7-17); Calcium 9.2 mg/dL (8.4-10.2); Carbon Dioxide 22 mmol/L (22-32); Chloride 102 mmol/L (98-107); Estimated Glomerular Filt Rate > 60 mL/min (>60); Globulin 2.9 g/dL (1.7-4.1); Glucose 77 mg/dL (70-100); HEMOLYSIS < 15 (0-50); Potassium 4.1 mmol/L (3.4-5.1); Sodium 131 mmol/L (137-145); Total Protein 6.6 g/dL (6.3-8.2)
== END ==
LOC: LAB 15:00
PROVIDERS: Referring Provider Obstetrics & Gynecology; Visit Provider Obstetrics & Gynecology
DX: O16.9 Unspecified maternal hypertension, unspecified trimester (principal)
CPT/HCPCS: 36415; 80053; 82570; 84156; 85025

== ENCOUNTER → 2024-05-08 10:09 | Outpatient (CLI) | payer OTHER, SELFPAY ==
[2024-05-08 12:59] LABS: Hematocrit 34.5 % (36-46); Hemoglobin 11.7 g/dL (12.0-16.0)
[2024-05-08 18:12] LABS: GTT (PREG) 1 Hour PP 50gm Dose 92 mg/dL (76-139)
== END ==
PROVIDERS: Referring Provider Obstetrics & Gynecology; Visit Provider Obstetrics & Gynecology
DX: Z34.02 Encounter for supervision of normal first pregnancy, second trimester (principal); Z3A.26 26 weeks gestation of pregnancy
CPT/HCPCS: 36415; 82950; 85014; 85018

== ENCOUNTER → 2024-05-31 14:39 | Outpatient (CLI) | payer OTHER, SELFPAY ==
[2024-05-31 16:48] LABS: Add Manual Diff / Slide Review NO; Basophils Absolute Auto 0 /uL (0-100); Basophils Percent Auto 0.2 % (0-2); Eosinophils Absolute Auto 100 /uL (0-450); Eosinophils Percent Auto 1.2 % (2-4); Hematocrit 34.8 % (36-46); Hemoglobin 11.8 g/dL (12.0-16.0); Lymphocytes Absolute Auto 1700 /uL (1100-4500); Lymphocytes Percent Auto 21.9 % (25-40); Monocytes Absolute Auto 700 /uL (0-900); Monocytes Percent Auto 9.2 % (3-14); Neutrophils Absolute Auto 5100 /uL (1500-7000); Neutrophils Percent Auto 67.5 % (50-75); Platelet Count 464 X10^3/uL (150-400); Red Blood Cell Count 3.82 X10^6/uL (4.0-5.2); Red Cell Distribution Width 13.9 % (11.6-14.8); White Blood Cell Count 7.6 X10^3/uL (4.5-11.0)
[2024-05-31 17:19] LABS: Alanine Aminotransferase 22 IU/L (<35); Albumin 3.7 g/dL (3.5-5.0); Albumin Globulin Ratio 1.3 (1.0-2.8); Alkaline Phosphatase 90 U/L (38-126); Aspartate Aminotransferase 21 IU/L (14-36); BUN Creatinine Ratio 17.8 (6-22); Bilirubin Total 0.3 mg/dL (0.2-1.3); Blood Urea Nitrogen 8 mg/dL (7-17); Calcium 9.3 mg/dL (8.4-10.2); Carbon Dioxide 20 mmol/L (22-32); Chloride 105 mmol/L (98-107); Estimated Glomerular Filt Rate > 60 mL/min (>60); Globulin 2.9 g/dL (1.7-4.1); Glucose 91 mg/dL (70-100); HEMOLYSIS < 15 (0-50); Potassium 3.9 mmol/L (3.4-5.1); Sodium 134 mmol/L (137-145); Total Protein 6.6 g/dL (6.3-8.2); Uric Acid 2.5 mg/dL (2.5-6.2)
== END ==
PROVIDERS: Referring Provider Obstetrics & Gynecology; Visit Provider Obstetrics & Gynecology
DX: O16.9 Unspecified maternal hypertension, unspecified trimester (principal)
CPT/HCPCS: 36415; 80053; 84550; 85025

== ENCOUNTER 2024-07-16 15:06 | Observation (INO) | payer OTHER, SELFPAY ==
[2024-07-16 17:18] LABS: Creatinine Urine Random 50.67 mg/dL; Protein (Total) Urine Random 14 mg/dL (0-12); Protein Creatinine Ratio Urine 0.27 GRAM/24H
[2024-07-16 17:20] LABS: Add Manual Diff / Slide Review NO; Basophils Absolute Auto 0 /uL (0-100); Basophils Percent Auto 0.4 % (0-2); Eosinophils Absolute Auto 100 /uL (0-450); Eosinophils Percent Auto 0.7 % (2-4); Hematocrit 37.6 % (36-46); Hemoglobin 12.5 g/dL (12.0-16.0); Lymphocytes Absolute Auto 1900 /uL (1100-4500); Lymphocytes Percent Auto 24.6 % (25-40); Mean Corpuscular HGB Conc 33.2 % (30-36); Mean Corpuscular Hemoglobin 29.7 PG (26-34); Mean Corpuscular Volume 89.6 fL (80-100); Monocytes Absolute Auto 700 /uL (0-900); Monocytes Percent Auto 8.7 % (3-14); Neutrophils Absolute Auto 5200 /uL (1500-7000); Neutrophils Percent Auto 65.6 % (50-75); Platelet Count 442 X10^3/uL (150-400); White Blood Cell Count 7.9 X10^3/uL (4.5-11.0)
[2024-07-16 17:23] LABS: Alanine Aminotransferase 25 IU/L (<35); Albumin 3.9 g/dL (3.5-5.0); Albumin Globulin Ratio 1.2 (1.0-2.8); Alkaline Phosphatase 185 U/L (38-126); Aspartate Aminotransferase 24 IU/L (14-36); BUN Creatinine Ratio 14.6 (6-22); Bilirubin Total 0.5 mg/dL (0.2-1.3); Blood Urea Nitrogen 7 mg/dL (7-17); Calcium 8.8 mg/dL (8.4-10.2); Carbon Dioxide 21 mmol/L (22-32); Chloride 104 mmol/L (98-107); Estimated Glomerular Filt Rate > 60 mL/min (>60); Globulin 3.3 g/dL (1.7-4.1); Glucose 80 mg/dL (70-100); HEMOLYSIS 18 (0-50); Potassium 4.1 mmol/L (3.4-5.1); Sodium 133 mmol/L (137-145); Total Protein 7.2 g/dL (6.3-8.2); Uric Acid 3.2 mg/dL (2.5-6.2)
== END 2024-07-16 17:45 | disposition home or self-care (01) ==
PROVIDERS: Admitting Provider Obstetrics & Gynecology; Referring Provider Obstetrics & Gynecology; Visit Provider Obstetrics & Gynecology
DX: O47.1 False labor at or after 37 completed weeks of gestation (principal); Z3A.38 38 weeks gestation of pregnancy
CPT/HCPCS: 59025; 80053; 82570; 84156; 84550; 85025; G0378; G0379

== ENCOUNTER → 2024-07-27 11:59 | Outpatient (CLI) | payer OTHER, SELFPAY ==
[2024-07-29 12:36] LABS: Strep Grp B PCR NEG for Grp B Strep
== END ==
PROVIDERS: Visit Provider Obstetrics & Gynecology
DX: Z36.85 Encounter for antenatal screening for Streptococcus B (principal)
CPT/HCPCS: 87653

== ENCOUNTER → 2024-08-01 15:05 | Outpatient (CLI) | payer OTHER, SELFPAY ==
[2024-08-01 15:31] LABS: Add Manual Diff / Slide Review NO; Basophils Absolute Auto 0 /uL (0-100); Basophils Percent Auto 0.3 % (0-2); Eosinophils Absolute Auto 0 /uL (0-450); Eosinophils Percent Auto 0.5 % (2-4); Hematocrit 37.4 % (36-46); Hemoglobin 12.7 g/dL (12.0-16.0); Lymphocytes Absolute Auto 1800 /uL (1100-4500); Lymphocytes Percent Auto 24.3 % (25-40); Mean Corpuscular HGB Conc 33.8 % (30-36); Mean Corpuscular Hemoglobin 29.9 PG (26-34); Mean Corpuscular Volume 88.4 fL (80-100); Monocytes Absolute Auto 700 /uL (0-900); Monocytes Percent Auto 9.1 % (3-14); Neutrophils Absolute Auto 4900 /uL (1500-7000); Neutrophils Percent Auto 65.8 % (50-75); Platelet Count 418 X10^3/uL (150-400); Red Blood Cell Count 4.23 X10^6/uL (4.0-5.2); Red Cell Distribution Width 14.4 % (11.6-14.8); White Blood Cell Count 7.4 X10^3/uL (4.5-11.0)
[2024-08-01 15:58] LABS: Alanine Aminotransferase 28 IU/L (<35); Albumin 3.8 g/dL (3.5-5.0); Albumin Globulin Ratio 1.4 (1.0-2.8); Alkaline Phosphatase 252 U/L (38-126); Aspartate Aminotransferase 28 IU/L (14-36); BUN Creatinine Ratio 14.3 (6-22); Bilirubin Total 0.5 mg/dL (0.2-1.3); Blood Urea Nitrogen 8 mg/dL (7-17); Calcium 9.7 mg/dL (8.4-10.2); Carbon Dioxide 24 mmol/L (22-32); Chloride 103 mmol/L (98-107); Estimated Glomerular Filt Rate > 60 mL/min (>60); Globulin 2.8 g/dL (1.7-4.1); Glucose 87 mg/dL (70-100); HEMOLYSIS < 15 (0-50); Potassium 4.4 mmol/L (3.4-5.1); Sodium 134 mmol/L (137-145); Total Protein 6.6 g/dL (6.3-8.2); Uric Acid 3.1 mg/dL (2.5-6.2)
== END ==
LOC: LAB 15:08
PROVIDERS: Referring Provider Obstetrics & Gynecology; Visit Provider Obstetrics & Gynecology
DX: O16.9 Unspecified maternal hypertension, unspecified trimester (principal)
CPT/HCPCS: 36415; 80053; 84550; 85025

== ENCOUNTER 2024-08-01 15:09 | Observation (INO) | payer OTHER, SELFPAY ==
[2024-08-01 16:28] VITALS: BP 136/94; PULSE 83
[2024-08-01] MEDS: LABETALOL 100 MG TABLET 200 MG PO (16:28)
[2024-08-01 17:01] LABS: Creatinine Urine Random 191.32 mg/dL; Protein (Total) Urine Random 13 mg/dL (0-12); Protein Creatinine Ratio Urine 0.06 GRAM/24H
--- NOTE | 2024-08-01 17:07 | P.TNLD_ITS ---
Visit Information Visit Information Date of evaluation: 08/01/24 Primary OB Provider: Yao Sifuentes Reason for Evaluation: Yes other Comments/Additional reasons for admission: 36+5 wks w/ chronic HTN and increasing BP on current regimen of nifedipine ER 30 mg BID. Patient admitted to the center for prolonged blood pressure monitoring and labs. Vital Signs Vital Signs: Vital Signs - 8 hr 08/01/24 16:28 Pulse Rate 83 Blood Pressure 136/94 H [facility] Medical History (Updated 08/01/24 @ 17:12 by Yao Sifuentes MD) Vulvar varices during Hypertension affecting Eczema (~2022) Osteoarthritis (~2022) PTSD (post-traumatic stress disorder) (~2019) Tic disorder (~2021) Fracture (~2018) Foot pain (~2022) Ankle pain (~2022) Hypertension Torn meniscus (~2022) Anxiety (~2019) Osteochondral defect of ankle Wrist fracture (~2018) Tonsillar hypertrophy Seizures (~2020) Heart murmur Surgical History (Updated 04/09/24 @ 21:18 by Simran Bragg) Anesthesia History of tonsillectomy and adenoidectomy (~2020) [place] teeth removed (~2015) Family History (Updated 04/09/24 @ 21:20 by Simran Bragg) Brother Seizure Autism Mother History of recurrent miscarriages Sister Preeclampsia Seizure Grandmother Diabetes mellitus History of heart disease Stroke Father Hypertension Grandfather Diabetes mellitus Grandmother Hyperlipidemia Social History marital status: number of children: 0 household members: spouse, friend(s) and none lives independently: Yes caregiver/support person: No housing: house pets and animals: Yes (1 dog, 1 cat) education level: college (some college) 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) special bernadine needs: No travel history: over 6 months ago other: occasionally vapes nicotine seatbelt use: always water heater temp set < 120 deg: Yes working smoke detector in home: Yes fire extinguisher in home: No carbon monox detector in home: Yes firearms in home: Yes firearms unloaded and locked: No (mostly) do you feel safe at home: Yes Smoking Status: Former smoker (~5 years, quit when she learned she was ) Tobacco: How many years used: 5 (off and on, mostly vaping) alcohol intake: former (~2-4 hard ciders/week when not ) substance use type: marijuana during the past year weight has: increased > 10 lbs well-balanced diet: daily or most days daily servings fruits/ve-4 caffeine: Yes (AM cup coffee) Type(s) of exercise: walking and weight lifting Review of Systems Review of Systems Narrative: Problem-specific ROS positives included in HPI Exam Vital Signs (past 8 hours): - 08/01/24 16:28 Pulse Rate 83 Blood Pressure 136/94 H Const General: cooperative and comfortable HENMT Head: normal to inspection, normocephalic and atraumatic Eyes General: appearance normal, both eyes and all related structures Resp Effort & Inspection: normal respiratory effort and able to speak in complete sentences GI Inspection: normal to inspection Palpation: soft, no hepatosplenomegaly and No tender Uterus Location (Fundal Height): 37 Presentation: vertex Estimated Weight (lbs): 8 Neuro DTR's: Rt Patellar: 2+, Lt Patellar: 2+, Rt Ankle: 2+ and Lt Ankle: 2+ Extrem Right lower extremity: edema (Trace) Left lower extremity: edema (Trace) Objective Labs Labs: Laboratory Results - last 24 hr 08/01/24 15:10 U Random Total Protein 13 H Urine Creatinine 191.32 Protein/Creatinin Ratio 0.06 Evaluation Evaluation Baseline heart rate: 125 Variability: Moderate (11-25) monitor accelerations: Present Monitor Decelerations: Absent Contraction Frequency (minutes): 3 (Patient does not feel contractions) Category of Tracing: Reactive Status: Category l Diagnosis, Plan/Disposition Final Diagnosis (1) Hypertension affecting : Status: Acute (2) Gestational hypertension w/o significant proteinuria in 3rd trimester: Status: Acute Plan/Disposition Plan: Labs: SBC, CMP, Pr:Cr ratio, and UA NL. With the patient's chronic hypertension and now superimposed gestational hypertension without severe features however, will add labetalol 200 mg p.o. b.i.d. and plan to admit the patient for cervical ripening on the evening of 08/06/2024 at 37+3 for cervical ripening/induction. OB Disposition: home
== END 2024-08-01 17:10 | disposition home or self-care (01) ==
LOC: LABOR 15:10
PROVIDERS: Admitting Provider Obstetrics & Gynecology; Referring Provider Obstetrics & Gynecology; Visit Provider Obstetrics & Gynecology
DX: O10.913 Unspecified pre-existing hypertension complicating pregnancy, third trimester (principal); Z3A.36 36 weeks gestation of pregnancy
CPT/HCPCS: 36415; 59025; 59050; 80053; 82570; 84156; 84550; 85025; G0378; G0379

== ENCOUNTER 2024-08-06 19:05 | Inpatient (IN) | payer OTHER, SELFPAY ==
[2024-08-06 19:19] VITALS: BP 139/87
[2024-08-06 19:45] LABS: Add Manual Diff / Slide Review NO; Basophils Absolute Auto 0 /uL (0-100); Basophils Percent Auto 0.8 % (0-2); Eosinophils Absolute Auto 0 /uL (0-450); Eosinophils Percent Auto 0.4 % (2-4); Hematocrit 36.5 % (36-46); Hemoglobin 12.2 g/dL (12.0-16.0); Lymphocytes Absolute Auto 1500 /uL (1100-4500); Lymphocytes Percent Auto 27.1 % (25-40); Mean Corpuscular HGB Conc 33.3 % (30-36); Mean Corpuscular Hemoglobin 29.8 PG (26-34); Mean Corpuscular Volume 89.5 fL (80-100); Monocytes Absolute Auto 600 /uL (0-900); Monocytes Percent Auto 10.1 % (3-14); Neutrophils Absolute Auto 3500 /uL (1500-7000); Neutrophils Percent Auto 61.6 % (50-75); Platelet Count 419 X10^3/uL (150-400); Red Blood Cell Count 4.08 X10^6/uL (4.0-5.2); Red Cell Distribution Width 14.8 % (11.6-14.8); White Blood Cell Count 5.7 X10^3/uL (4.5-11.0)
[2024-08-06 20:01] LABS: Alanine Aminotransferase 39 IU/L (<35); Albumin 3.6 g/dL (3.5-5.0); Albumin Globulin Ratio 1.1 (1.0-2.8); Alkaline Phosphatase 250 U/L (38-126); Aspartate Aminotransferase 42 IU/L (14-36); BUN Creatinine Ratio 17.9 (6-22); Bilirubin Total 0.6 mg/dL (0.2-1.3); Blood Urea Nitrogen 10 mg/dL (7-17); Calcium 8.8 mg/dL (8.4-10.2); Carbon Dioxide 21 mmol/L (22-32); Chloride 105 mmol/L (98-107); Estimated Glomerular Filt Rate > 60 mL/min (>60); Globulin 3.3 g/dL (1.7-4.1); Glucose 86 mg/dL (70-100); HEMOLYSIS < 15 (0-50); Potassium 3.7 mmol/L (3.4-5.1); Sodium 130 mmol/L (137-145); Total Protein 6.9 g/dL (6.3-8.2); Uric Acid 4.1 mg/dL (2.5-6.2)
[2024-08-06 20:03] LABS: Creatinine Urine Random 293.08 mg/dL; Protein (Total) Urine Random 10 mg/dL (0-12); Protein Creatinine Ratio Urine 0.03 GRAM/24H
[2024-08-06] MEDS: miSOPROStoL 25 MCG TABLET 50 MCG PO (20:27)
[2024-08-06] MEDS: ONDANSETRON 4 MG/2 ML INJ IV (20:27)
[2024-08-06 20:33] VITALS: BP 136/93; PULSE 79
[2024-08-06] MEDS: NIFEdipine 30 MG TAB ER PO (20:33)
[2024-08-06] MEDS: LABETALOL 100 MG TABLET 200 MG PO (20:33)
[2024-08-06] MEDS: lamoTRIgine 100 MG TABLET 50 MG PO (21:37)
[2024-08-07] MEDS: miSOPROStoL 25 MCG TABLET 50 MCG PO ×2 (00:18→04:18)
[2024-08-07 08:38] VITALS: BP 136/88; PULSE 92
[2024-08-07] MEDS: LABETALOL 100 MG TABLET 200 MG PO ×2 (08:38→20:33)
[2024-08-07] MEDS: NIFEdipine 30 MG TAB ER PO ×2 (08:38→20:33)
[2024-08-07] MEDS: lamoTRIgine 100 MG TABLET 50 MG PO ×2 (08:39→20:32)
--- NOTE | 2024-08-07 09:43 | P.HPOB_ITS ---
OB HPI Date/Time Date of admission: 08/06/24 Date Patient Seen: 08/07/24 Time Patient Seen: 08:05 History of Present Condition Chief complaint: IUP 37+4, CHTN w/ superimposed PEC, GBS negative : 1 Para: 0 Estimated Date of Delivery: 08/24/24 Estimated Gestational Age (weeks): 37+4 Narrative: Denia Borges is a 28 year old primigravida admitted now at 37+ 4 weeks gestational age for cervical ripening induction due to chronic hypertension with superimposed gestational hypertension without severe features. Her current antihypertensive regimen includes nifedipine 30 mg extended release twice daily and labetalol 200 mg p.o. b.i.d.. Labetalol was added about a week ago due to rising blood pressures and she has responded nicely. Laboratory studies at that time were negative but her protein to creatinine ratio was now 0.3 and she has mild but not 2 times normal liver function studies. Patient has a history migraines with aura and what is described has a psychogenic nonepileptic seizure which she is very afraid will occur again during labor any medication for pain relief. Patient's course aside from her elevated blood pressure has been notable for LGA on 20 week and 3rd trimester scans. Dating is solid and other milestones have been appropriate throughout the . GBS is negative. Indications Indication for induction OB: gestational HTN/pre-eclampsia History of Present care: good care Dating criteria: LMP confirmed by 1st trimester US Ultrasounds: normal 1st trimester US, normal mid trimester US and abnormal US findings Abnormal ultrasound findings: LGA on prior ultrasound studies with her most recent scan on 05/23/2024 at [facility] which showed the to be at the 96th percentile insofar as estimated weight. Obstetrical complications: preeclampsia, gestational hypertension and other Medical complications: none Preadmission Labs Blood type: O (+) positive -: Antibody screen: negative, GBS status: negative, HBsAG: negative, HIV: negative and RPR/VDLR: negative -: Chlamydia screen: not detected and Gonorrhea screen: not detected -: Rubella: immune and Varicella: immune HCT: 36.5 HCAB: negative PAP: Normal Quad screen: Normal (AFP testing negative) Cell-free DNA: Low risk male 1 hr GTT: 92 Prior (ies) History: Primigravida Hx # Term Pregnancies: 0 Hx # Pregnancies: 0 Number of Living Children: 0 Multiple births: 0 Spontaneous abortions: 0 Ectopic pregnancies: 0 Elective abortions: 0 Evaluation Evaluation Baseline heart rate: 125 Variability: Moderate (11-25) monitor accelerations: Present Monitor Decelerations: Absent Uterine Contraction Intensity: Mild Category of Tracing: Reactive Status: Category l Dilation (cm): 2 Effacement (%): 40 Dilation: 1-2 cm Effacement: 40-50% station: -3 Position of cervix: mid Consistency: medium [place] score: 4 PFSH Medical History (Updated 08/01/24 @ 17:12 by Yao Sifuentes MD) Vulvar varices during Hypertension affecting Eczema (~2022) Osteoarthritis (~2022) PTSD (post-traumatic stress disorder) (~2019) Tic disorder (~2021) Fracture (~2018) Foot pain (~2022) Ankle pain (~2022) Hypertension Torn meniscus (~2022) Anxiety (~2019) Osteochondral defect of ankle Wrist fracture (~2018) Tonsillar hypertrophy Seizures (~2020) Heart murmur Surgical History (Updated 04/09/24 @ 21:18 by Simran Bragg) Anesthesia History of tonsillectomy and adenoidectomy (~2020) [place] teeth removed (~2015) Family History (Updated 04/09/24 @ 21:20 by Simran Bragg) Brother Seizure Autism Mother History of recurrent miscarriages Sister Preeclampsia Seizure Grandmother Diabetes mellitus History of heart disease Stroke Father Hypertension Grandfather Diabetes mellitus Grandmother Hyperlipidemia Social History marital status: number of children: 0 household members: spouse, friend(s) and none lives independently: Yes caregiver/support person: No housing: house pets and animals: Yes (1 dog, 1 cat) education level: college (some college) 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) special bernadine needs: No travel history: over 6 months ago other: occasionally vapes nicotine seatbelt use: always water heater temp set < 120 deg: Yes working smoke detector in home: Yes fire extinguisher in home: No carbon monox detector in home: Yes firearms in home: Yes firearms unloaded and locked: No (mostly) do you feel safe at home: Yes Smoking Status: Former smoker Tobacco: How many years used: 5 (off and on, mostly vaping) alcohol intake: former (~2-4 hard ciders/week when not ) substance use type: marijuana during the past year weight has: increased > 10 lbs well-balanced diet: daily or most days daily servings fruits/ve-4 caffeine: Yes (AM cup coffee) Type(s) of exercise: walking and weight lifting Meds Home Medications and Allergies Home Medications Medication Instructions Recorded Confirmed Type folic acid 1 mg tablet 5 mg PO DAILY 01/18/24 07/20/24 History lamotrigine 25 mg tablet 50 mg PO BID 01/18/24 08/07/24 History vitamin-ferrous sulfate tab PO 01/18/24 07/20/24 History 27 mg iron-folic acid 0.8 mg tablet nifedipine 30 mg tablet,extended 30 mg PO BID #60 tabs 05/31/24 08/07/24 Rx release sertraline 50 mg tablet 50 mg PO DAILY #30 tabs 07/27/24 08/07/24 Rx labetalol 200 mg tablet 200 mg PO BID #60 tabs 08/01/24 08/07/24 Rx Allergies Allergy/AdvReac Type Severity Reaction Status Date / Time fentanyl AdvReac Severe Seizure Verified 08/07/24 10:25 meperidine [From Demerol] AdvReac Severe Seizure Verified 08/07/24 10:26 Review of Systems Review of Systems Narrative: Problem-specific ROS positives included in HPI OB Exam Vital signs Blood Pressure: 139/87 Pulse Rate: 75 Respiratory Rate: 18 Temperature: 98.1 F [facility] Head: normal to inspection, normocephalic and atraumatic Eyes General: appearance normal, both eyes and all related structures Resp Effort & Inspection: normal respiratory effort and able to speak in complete sentences Auscultation: clear to auscultation bilaterally Cardio Rate: regular rate Rhythm: regular rhythm Heart Sounds: S1 normal, S2 normal and no murmurs Extremities Lower extremity: Yes normal to inspection GI Inspection: normal to inspection Palpation: Yes soft and Yes no hepatosplenomegaly Uterus Location (Fundal Height): 39 Presentation: vertex Estimated Weight (lbs): 8 Objective Labs 08/06/24 19:30 08/06/24 19:30 Labs: Laboratory Results - last 24 hr 08/06/24 19:30 WBC 5.7 RBC 4.08 Hgb 12.2 Hct 36.5 MCV 89.5 MCH 29.8 MCHC 33.3 RDW 14.8 Plt Count 419 H Neut % (Auto) 61.6 Lymph % (Auto) 27.1 [place] % (Auto) 10.1 Eos % (Auto) 0.4 L Baso % (Auto) 0.8 Neut # (Auto) 3500 Lymph # (Auto) 1500 [place] # (Auto) 600 Eos # (Auto) 0 Baso # (Auto) 0 Sodium 130 L Potassium 3.7 Chloride 105 Carbon Dioxide 21 L BUN 10 Creatinine 0.56 Estimated GFR > 60 BUN/Creatinine Ratio 17.9 Glucose 86 Uric Acid 4.1 Calcium 8.8 Total Bilirubin 0.6 AST 42 H ALT 39 H Alkaline Phosphatase 250 H Total Protein 6.9 Albumin 3.6 Globulin 3.3 Albumin/Globulin Ratio 1.1 U Random Total Protein 10 Urine Creatinine 293.08 Protein/Creatinin Ratio 0.03 Blood Type O Positive Antibody Screen Negative Assessment and Plan Assessment and Plan Assessment and Plan narrative: ASSESSMENT 1. Intrauterine , 37+ 4 weeks gestational age 2. Chronic hypertension with superimposed gestational hypertension/preeclampsia 3. History of psychogenic nonepileptic seizure 4. Group B negative status PLAN 1. Admit for cervical ripening with oral Cytotec followed by induction as indicated 2. See admission orders Time-Based Coding :: [TOTAL MINUTES] spent with patient and on the chart (including review of chart, obtaining history, exam, reviewing outside data, placing orders, documenting exam and treatment plan, and counseling patient) on [DATE].
[2024-08-07] MEDS: OXYTOCIN PREMIX 30 UNIT/500 ML PLAST..BAG 200 UNIT IV (10:47)
[2024-08-07] MEDS: LACTATED RINGERS 1,000 ML 100 ML IV ×2 (10:47→14:08)
[2024-08-07 13:46] VITALS: BP 139/87; PULSE 75; RESP 18; TEMP 36.7
--- NOTE | 2024-08-07 13:48 | PM.OBPNLAB ---
Date/Time Date Patient Seen: 08/07/24 Time Patient Seen: 09:05 Pain Control Pain control: tolerating well Pelvic Exam Dilation (cm): 3 Effacement (%): 80 station: -2 Amniotic membrane status: Ruptured Comments: AROM, clear fluid, 904 Contractions Contractions on admission: none Monitor mode: External Contraction pattern: Irregular Contraction phase: Resting Contraction intensity: Mild Status status: Category l Heart Rate Baseline: 125 Monitor Accelerations: Present Monitor Decelerations: Absent Monitor Variability: Moderate Assessment and Plan Assessment: induction ongoing Comments: AROM performed. Will initiate Pitocin augmentation if contractions do not promptly become more organized.
--- NOTE | 2024-08-07 13:50 | PM.OBPNLAB ---
Date/Time Date Patient Seen: 08/07/24 Time Patient Seen: 13:00 Pain Control Pain control: tolerating well Pelvic Exam Dilation (cm): 4 Effacement (%): 90 station: -1 Amniotic membrane status: Ruptured Contractions Contractions on admission: regular Monitor mode: External Pitocin rate (mU/min): 1 Contraction frequency (min): 2 Contraction duration (min): 1 Contraction pattern: Regular Contraction phase: Resting Contraction intensity: Strong/Firm Status status: Category l Heart Rate Baseline: 120 Monitor Accelerations: Present Monitor Decelerations: Absent Monitor Variability: Moderate Assessment and Plan Assessment: induction ongoing Plan: continuous present management Comments: Anticipate . Anesthesia has consulted with the patient and she is cleared for epidural if desired.
[2024-08-07] MEDS: BUPIVACAINE 0.5% (PF) 25 ML in SODIUM CHLORIDE 0.9% 75 ML 6 ML EPIDURAL (14:07)
[2024-08-07] MEDS: BUPIVACAINE 0.5% (PF) 25 ML in SODIUM CHLORIDE 0.9% 75 ML 10 ML EPIDURAL (14:07)
--- NOTE | 2024-08-07 14:22 | P.PCN_ITS ---
Regional Block Pre-procedure Procedure: Continuous Lumbar Epidural for L&D Attending OB provider: Yao Sifuentes PMH/ROS narrative: Pt is a 28yo female with PMH of gHTN concomitant w/ cHTN as well as hx of seizures/pseudoseizures including an incident where a seizure episode may have been precipitated by meperidine (most likely) and/or fentanyl. For this reason, will opt for plain bupiv epidural. PSH/Anesthesia history narrative: See above Exam narrative: NAD, A&Ox3, uncomfortable w/ contractions RRR CTAB, nml WOB on RA gravid uterus ASA Class: III Labs: Hct 36.5 % (36-46) 08/06/24 19:30 Plt Count 419 X10^3/uL (150-400) H 08/06/24 19:30 Medications: Current Medications Generic Name Dose Route Start Last Admin Trade Name Freq PRN Reason Stop Dose Admin Carboprost Tromethamine 250 mcg 08/06/24 19:20 Carboprost 250 Mcg/Ml Ampul IM Q90M PRN Bleeding Diphenhydramine HCl 25 mg 08/07/24 14:17 Diphenhydramine 50 Mg/Ml Vial IV Q10M PRN Pruritis Ephedrine Sulfate 10 mg 08/07/24 14:17 Ephedrine 50 Mg/Ml Vial IV Q5M PRN Blood pressure decrease more than 20% of baseline. Fentanyl 50 mcg 08/06/24 19:20 Fentanyl 100 Mcg/2 Ml Inj IV Q1H PRN Pain, Moderate (4-6) Oxytocin/Lactated Ringer's 30 unit in 500 mls @ 200 mls/hr 08/06/24 19:20 08/07/24 10:47 Oxytocin Premix IV 200 mls/hr CONT PRN Administration Bleeding Protocol Tranexamic Acid 1,000 mg/ 100 mls @ 600 mls/hr 08/06/24 19:20 Sodium Chloride IV NOW PRN Bleeding Oxytocin/Lactated Ringer's 30 unit in 500 mls @ 2 mls/hr 08/07/24 09:47 Oxytocin Premix IV TITRATE ORACIO Protocol 2 MILLIUNIT/MIN Bupivacaine HCl 25 ml/ Sodium 100 mls @ 6 mls/hr 08/07/24 10:30 08/07/24 14:07 Chloride EPIDURAL 6 mls/hr CONT ORACIO Administration Bupivacaine HCl 25 ml/ Sodium 100 mls @ 10 mls/hr 08/07/24 14:30 Chloride EPIDURAL CONT ORACIO Labetalol HCl 200 mg 08/06/24 21:00 08/07/24 08:38 Labetalol 100 Mg Tablet PO 200 mg BID ORACIO Administration Lamotrigine 50 mg 08/06/24 21:00 08/07/24 08:39 Lamotrigine 100 Mg Tablet PO 50 mg BID ORACIO Administration Lidocaine HCl 20 ml 08/06/24 19:20 Lidocaine 1% 20 Ml INJ INTRA-OP PRN Post Delivery Methylergonovine Maleate 0.2 mg 08/06/24 19:20 Methylergonovine 0.2 Mg/Ml Vial IM NOW PRN Bleeding Methylergonovine Maleate 0.2 mg 08/06/24 19:20 Methylergonovine 0.2 Mg Tablet PO Q6HR PRN Heavy Bleeding Mineral Oil 30 ml 08/06/24 19:20 Mineral Oil 30 Ml Udc TOP PRN PRN Version Misoprostol 50 mcg 08/06/24 19:30 08/07/24 04:18 Misoprostol 25 Mcg Tablet PO 50 mcg Q4H ORACIO Administration Misoprostol 400 mcg 08/06/24 19:20 Misoprostol 200 Mcg Tablet SL NOW PRN Bleeding Misoprostol 800 mcg 08/06/24 19:20 Misoprostol 200 Mcg Tablet DC NOW PRN Bleeding Nalbuphine HCl 2.5 mg 08/07/24 14:17 Nalbuphine 20 Mg/Ml Ampul IV Q10M PRN Pruritis Naloxone HCl 0.2 mg 08/06/24 19:20 Naloxone 0.4 Mg/Ml Vial IV Q2MIN PRN Opiate Reversal Naloxone HCl 0.1 mg 08/07/24 14:17 Naloxone 0.4 Mg/Ml Vial IV 08/07/24 14:18 NOW ONE Nifedipine 30 mg 08/06/24 21:00 08/07/24 08:38 Nifedipine 30 Mg Tab Er PO 30 mg BID [facility] Administration Ondansetron HCl 4 mg 08/06/24 19:20 08/06/24 20:27 Ondansetron 4 Mg/2 Ml Inj IV 4 mg Q4HR PRN Administration Nausea And Vomiting Ondansetron HCl 4 mg 08/07/24 17:00 Ondansetron 4 Mg/2 Ml Inj IV 08/07/24 21:01 Q4HR [facility] Oxytocin 10 unit 08/06/24 19:20 Oxytocin 10 Unit/Ml Vial IM NOW PRN Bleeding Sertraline HCl 50 mg 08/06/24 21:00 Sertraline 50 Mg Tablet PO BEDTIME ORACIO Zolpidem Tartrate 5 mg 08/06/24 19:20 Zolpidem 5 Mg Tablet PO BEDTIME PRN Sleep Allergies: Allergies Allergy/AdvReac Type Severity Reaction Status Date / Time fentanyl AdvReac Severe Seizure Verified 08/07/24 10:25 meperidine [From Demerol] AdvReac Severe Seizure Verified 08/07/24 10:26 Procedure Insertion date: 08/07/24 Insertion time: 13:50 Prep/Local: betadine x3 and 1% lidocaine (2ml) Interspace: L4-5 Patient position: sitting Needle: 17 gauge Tuohy (plus confirmatory DPE w/ spinal needle w/ +CSF) Loss of resistance with: saline LIZ at (cm): 7 Catheter placed at SKIN (cm): 11 Catheter in SPACE (cm): 4 Insertion: No CSF, No Blood, No Paresthesia with insertion, No Paresthesia with injection and No Test dose reaction Initial Medications TEST DOSE time: 13:53 TEST DOSE: 1.5% lidocaine with epinephrine 1:200k (mL): 3 BOLUS DOSE time: 14:05 BOLUS DOSE (mL): 8 BOLUS DOSE med: 0.25% bupivacaine Infusion INFUSION: 0.125% bupivacaine Initial rate (mL/hr): 10 Post-procedure Anesthesia date START: 08/07/24 Anesthesia time START: 13:37
[2024-08-07] MEDS: ONDANSETRON 4 MG/2 ML INJ IV (17:15)
--- NOTE | 2024-08-07 17:23 | PM.OBPNLAB ---
Date/Time Date Patient Seen: 08/07/24 Time Patient Seen: 17:24 Pain Control Pain control: epidural Comments: Patient currently experiencing significant pelvic/pubic discomfort with contractions despite epidural bolus. Anesthesia contacted and will re-evaluate the patient as soon as they are available to do so. Pelvic Exam Dilation (cm): 6 Effacement (%): 100 station: 0 Amniotic membrane status: Ruptured Comments: Cervix is 6-7 cm dilated and vertex is at 0/-1 station. No caput or molding noted. Position indeterminate. Contractions Contractions on admission: none Monitor mode: External Pitocin rate (mU/min): 4 Contraction frequency (min): 2 Contraction pattern: Regular Contraction phase: Resting Contraction intensity: Strong/Firm Status status: Category l Heart Rate Baseline: 120 Monitor Accelerations: Present Monitor Decelerations: Absent Monitor Variability: Moderate Assessment and Plan Assessment: induction ongoing Plan: continuous present management Comments: Anesthesia contacted to re-evaluate patient for JULES re-dosing versus replacement. New labs ordered for 1800. Call coverage transferred to Dr. Berto Munoz. Anticipate .
[2024-08-07 18:21] LABS: Add Manual Diff / Slide Review NO; Basophils Absolute Auto 0 /uL (0-100); Basophils Percent Auto 0.2 % (0-2); Eosinophils Absolute Auto 0 /uL (0-450); Hemoglobin 12.4 g/dL (12.0-16.0); Lymphocytes Absolute Auto 900 /uL (1100-4500); Lymphocytes Percent Auto 6.4 % (25-40); Mean Corpuscular HGB Conc 33.6 % (30-36); Mean Corpuscular Hemoglobin 29.8 PG (26-34); Mean Corpuscular Volume 88.7 fL (80-100); Monocytes Absolute Auto 800 /uL (0-900); Monocytes Percent Auto 5.6 % (3-14); Neutrophils Absolute Auto 12300 /uL (1500-7000); Neutrophils Percent Auto 87.8 % (50-75); Platelet Count 394 X10^3/uL (150-400); Red Blood Cell Count 4.17 X10^6/uL (4.0-5.2); Red Cell Distribution Width 14.4 % (11.6-14.8)
[2024-08-07 18:31] LABS: Alanine Aminotransferase 49 IU/L (<35); Albumin 3.7 g/dL (3.5-5.0); Albumin Globulin Ratio 1.2 (1.0-2.8); Alkaline Phosphatase 276 U/L (38-126); Aspartate Aminotransferase 52 IU/L (14-36); Bilirubin Total 0.9 mg/dL (0.2-1.3); Bilirubin Unconjugated 0.5 mg/dL (0.0-1.1); Globulin 3.1 g/dL (1.7-4.1); HEMOLYSIS 36 (0-50); Total Protein 6.8 g/dL (6.3-8.2)
[2024-08-07] MEDS: SERTRALINE 50 MG TABLET PO (20:32)
[2024-08-07] MEDS: MAGNESIUM SULFATE 6 GM in SODIUM CHLORIDE 0.9% 100 ML IV (22:27)
--- NOTE | 2024-08-07 22:35 | PM.OBPNLAB ---
Date/Time Date Patient Seen: 08/07/24 Time Patient Seen: 10:25 Pain Control Pain control: epidural Comments: 2153 called by L & D charge nurse, advised apparent seizure activity in patient lasting four minutes from 1600-2333. Per nursing documentation patient was unresponsive to painful stimuli during this time. Seizure activity stopped then occurred again from [id number]. Labs notable for slight increase in LFTs (AST 42-52, ALT 39-49, alk-phos 250-276 ), platelets 394, BP 142/91. 2220 arrived at bedside, patient awake and oriented x3. Did not experience any bowel or bladder incontinence, no postictal confusion. Patient discussed with Dr. Sifuentes (primary OB); she does have a history of psychogenic nonepileptic seizures for which she takes lamotrigine 50 mg b.i.d. Order given for magnesium sulfate as prophylaxis against possibility of eclamptic seizure, though this episode seems more consistent with known psychogenic nonepileptic seizure activity. Pelvic Exam Dilation (cm): 8 Effacement (%): 100 station: 0 Amniotic membrane status: Ruptured Comments: Per L&D nurse Contractions Monitor mode: External Contraction frequency (min): 2 Contraction duration (min): 1 Contraction pattern: Regular Contraction phase: Resting Contraction intensity: Strong/Firm Status status: Category l Heart Rate Baseline: 125 Monitor Accelerations: Present Monitor Decelerations: Early and Variable (moderate x1) Monitor Variability: Moderate Assessment and Plan Assessment: active labor, induction ongoing and other (seizure activity) Comments: 28-year-old at GA 37+4 weeks. mIOL for cHN w/superimposed preE w/o severe features. MWB: 4 min period of seizure-like activity from 5517-3694 with brief respite before another 1 min episode from [id number]. A&O x3 with GCS 15 on evaluation, no typical seizure features such as bowel/bladder incontinence or post-ictal confusion. Clinical picture most c/w known psychogenic nonepileptic seizure activity. PIH labs with slight increase in LFTs, normal platelets, BP moderately elevated with max 155/93 lowering likelihood of eclamptic seizure. FWB: Cat 1 strip with a single moderate variable at 2208 (4 min after last observed seizure-like activity), some early decels noted. No indication of distress necessitating emergent delivery at this time. Labor: Start IV MgSO4 (6g bolus, 2g/hr maintenance) out of an abundance of caution given presence of superimposed preE. Pitocin stopped, will monitor for at least 30 min before restarting. Indications for delivery (e.g. distress, maternal seizure unresponsive to medication) discussed. Care plan and decision-making reviewed with patient and family, who all expressed agreement. Continue labor augmentation, cautiously optimistic for vaginal delivery.
[2024-08-07] MEDS: MAGNESIUM SULFATE 20 GM/500 ML IV.SOLN IV (23:40)
--- NOTE | 2024-08-08 07:14 | PM.OBPNLAB ---
Date/Time Date Patient Seen: 08/08/24 Time Patient Seen: 06:20 Pain Control Pain control: epidural Comments: Pt resting comfortably in bed. Not feeling contractions, only mild sensation of perineal pressure. No additional seizure-like activity noted. Pelvic Exam Dilation (cm): 9.5 Effacement (%): 100 station: 0 Amniotic membrane status: Ruptured Contractions Monitor mode: External Pitocin rate (mU/min): 20 Contraction frequency (min): 4 Contraction duration (min): 1 Contraction pattern: Regular Contraction phase: Resting Contraction intensity: Strong/Firm Status status: Category l Heart Rate Baseline: 125 Monitor Accelerations: Present Monitor Decelerations: Episodic and Variable Comments: Decel at 0651 to umair of 90bpm lasting 40s that is not clearly associated with a contraction, rare mild variables Assessment and Plan Assessment: active labor Comments: 28-year-old at GA 37+5 weeks. mIOL for cHTN w/superimposed preE w/o severe features. Maternal hx notable for migraine w/aura and psychogenic nonepileptic seizures. MWB: Comfortable w/no additional seizure-like activity. Tolerating labor well at this point. Continues MgSO4 as precautionary eclamptic seizure ppx. BP well within normal range, Mg level pending. FWB: Cat 2 strip with a single deceleration at 0651 not clearly associated with a contraction, rare mild variables. DAVID on exam. Labor: Slow progress but near complete dilation. Pitocin initially stopped after seizure like activity, now at 20. Progress likely slowed by tocolytic activity of MgSO4. Continue pitocin up to 30 as needed, anticipate vaginal delivery.
--- NOTE | 2024-08-08 07:38 | PM.OBPNLAB ---
Date/Time Date Patient Seen: 08/08/24 Time Patient Seen: 07:38 Pain Control Pain control: tolerating well and epidural Pelvic Exam Dilation (cm): 10 Effacement (%): 100 station: +1 Amniotic membrane status: Ruptured Comments: DAVID, no caput or moulding noted Contractions Contractions on admission: none Monitor mode: External Pitocin rate (mU/min): 22 Contraction frequency (min): 4 Contraction duration (min): 1 Contraction pattern: Regular Contraction phase: Resting Contraction intensity: Strong/Firm Status status: Category l Heart Rate Baseline: 130 Monitor Accelerations: Present Monitor Decelerations: Early Monitor Variability: Moderate Assessment and Plan Assessment: induction ongoing Plan: continuous present management Comments: Elam removed and patient will start pushing
[2024-08-08 07:40] LABS: Magnesium 7.5 mg/dL (1.6-2.3)
--- NOTE | 2024-08-08 08:44 | PM.OBPRVD ---
Events: Pre-Eclampsia and Other (Pseudoseizures) Labor & Delivery Delivery date: 08/08/24 Delivery Time: 08:05 Intrapartal Events: Mild Preeclampsia and Seizure Activity (Pseudoseizures x2) Cervical ripening method: per misoprostal protocol Induction method: per pitocin protocol Delivery augmentation: rupture of membranes Delivery monitor: external FHT and external uterine Route of delivery: Episiotomy description: None L&D Laceration Description: Periurethral - 1st Degree and Perineal - 1st Degree Delivery repair: chromic Estimated blood loss (mL): 350 Anesthesia Type: Epidural Complications: None Narrative: Following a 33 minute 2nd stage, the patient delivered spontaneously over an intact perineum, a viable male with Apgars of 5/7/8 and a weight of 3413 g (7 lb 8.4 oz). A loose nuchal cord was encountered and reduced after delivery of the . No shoulder dystocia was encountered and following delivery, skin to skin contact was initiated immediately. Delayed cord clamping was performed and once the umbilical cord was doubly clamped and cut, a sample of cord blood was obtained for routine studies. The placenta was then delivered 20 minutes following delivery of the , with gentle cord traction and suprapubic countertraction. Inspection of the placenta showed it to be intact with a centrally inserted three-vessel cord. IV Pitocin was initiated immediately following delivery of the placenta and prompt control of bleeding was achieved. Inspection of the perineum showed a pair of superficial periurethral lacerations which did not require closure. A small first-degree perineal laceration however did require closure with 2-0 chromic suture. Sponge, instrument, and needle counts were all correct at the end of the delivery process which was well tolerated. Baby 1: gender: Male Presentation: vertex Position: Left Occiput Anterior Placenta delivery description: Spontaneous Cord Vessel Description: 3 Vessels and Nuchal Cord (Loose x 1) score (1 min): 5 score (5 min): 7 score (10 min): 8 weight: 7 lb 8.39 oz Plan for aftercare: Routine care
[2024-08-08 09:31] VITALS: BP 140/79; PULSE 104
[2024-08-08] MEDS: LABETALOL 100 MG TABLET 200 MG PO (09:31)
[2024-08-08] MEDS: NIFEdipine 30 MG TAB ER PO (09:32)
[2024-08-08] MEDS: lamoTRIgine 100 MG TABLET 50 MG PO ×2 (09:34→21:00)
[2024-08-08] MEDS: MAGNESIUM SULFATE 20 GM/500 ML IV.SOLN IV (10:35)
[2024-08-08] MEDS: IBUPROFEN 600 MG TABLET PO ×3 (10:38→23:00)
[2024-08-08] MEDS: DOCUSATE 100 MG CAPSULE PO ×2 (10:38→21:00)
[2024-08-08] MEDS: ACETAMINOPHEN 325 MG TABLET 650 MG PO ×3 (10:39→23:00)
[2024-08-08] MEDS: SERTRALINE 50 MG TABLET PO (10:39)
[2024-08-08] MEDS: DERMOPLAST SPRAY 20% 60 ML 1 SPRAY TOP (10:40)
[2024-08-08] MEDS: LACTATED RINGERS 1,000 ML 100 ML IV (10:47)
[2024-08-08 21:55] VITALS: BP 104/58; PULSE 78
[2024-08-09] MEDS: IBUPROFEN 600 MG TABLET PO (06:12)
[2024-08-09] MEDS: ACETAMINOPHEN 325 MG TABLET 650 MG PO (06:12)
[2024-08-09 06:29] LABS: Add Manual Diff / Slide Review NO; Basophils Absolute Auto 0 /uL (0-100); Basophils Percent Auto 0.3 % (0-2); Eosinophils Absolute Auto 0 /uL (0-450); Eosinophils Percent Auto 0.4 % (2-4); Hematocrit 27.7 % (36-46); Hemoglobin 9.2 g/dL (12.0-16.0); Lymphocytes Absolute Auto 2000 /uL (1100-4500); Mean Corpuscular HGB Conc 33.3 % (30-36); Mean Corpuscular Hemoglobin 29.8 PG (26-34); Mean Corpuscular Volume 89.5 fL (80-100); Monocytes Absolute Auto 1000 /uL (0-900); Monocytes Percent Auto 8.9 % (3-14); Neutrophils Absolute Auto 8200 /uL (1500-7000); Neutrophils Percent Auto 72.4 % (50-75); Platelet Count 295 X10^3/uL (150-400); Red Cell Distribution Width 14.9 % (11.6-14.8); White Blood Cell Count 11.3 X10^3/uL (4.5-11.0)
[2024-08-09 06:49] LABS: Alanine Aminotransferase 44 IU/L (<35); Albumin 2.7 g/dL (3.5-5.0); Alkaline Phosphatase 189 U/L (38-126); Aspartate Aminotransferase 39 IU/L (14-36); BUN Creatinine Ratio 16.4 (6-22); Bilirubin Total 0.3 mg/dL (0.2-1.3); Blood Urea Nitrogen 11 mg/dL (7-17); Calcium 7.1 mg/dL (8.4-10.2); Carbon Dioxide 24 mmol/L (22-32); Chloride 106 mmol/L (98-107); Estimated Glomerular Filt Rate > 60 mL/min (>60); Globulin 2.6 g/dL (1.7-4.1); Glucose 88 mg/dL (70-100); HEMOLYSIS < 15 (0-50); Potassium 3.2 mmol/L (3.4-5.1); Sodium 134 mmol/L (137-145); Total Protein 5.3 g/dL (6.3-8.2)
--- NOTE | 2024-08-09 07:52 | PM.OBDS.1 ---
Discharge Providers Provider Date of admission: 08/06/24 19:05 Discharge Date: 08/09/24 Primary care physician: Brunilda CONTRERAS Provider Consults: 08/06/24 19:20 Consult to Anesthesiology Urgent Comment: Consulting Provider: Yao Sifuentes Reason for consultation: Epidural Has provider been notified: No 08/09/24 08:40 Consult to Senior Energy Analyst Routine Comment: Discharge provider: Yao Sifuentes MD Summary Hospital Course Date Patient Seen: 08/09/24 Time Patient Seen: 07:52 Diagnoses: Intrauterine gestation, 37+ 5 weeks, delivered by spontaneous vaginal Chronic hypertension with superimposed preeclampsia without severe features Anemia due to blood loss Hospital Course: Deina Borges is a 28 year old primigravida admitted now at 37+ 4 weeks gestational age for cervical ripening induction due to chronic hypertension with superimposed gestational hypertension without severe features. Her current antihypertensive regimen includes nifedipine 30 mg extended release twice daily and labetalol 200 mg p.o. b.i.d.. Labetalol was added about a week ago due to rising blood pressures and she has responded nicely. Laboratory studies at that time were negative but her protein to creatinine ratio was now 0.3 and she has mild but not 2 times normal liver function studies. Patient has a history migraines with aura and what is described has a psychogenic nonepileptic seizure which she is very afraid will occur again during labor any medication for pain relief. Patient's course aside from her elevated blood pressure has been notable for LGA on 20 week and 3rd trimester scans. Dating is solid and other milestones have been appropriate throughout the . GBS is negative. She was admitted on the evening of 08/06/2024 for cervical ripening with oral Cytotec. AROM was performed the following day and an epidural placed. With Pitocin augmentation she progressed well and delivered a viable male with Apgars of 5/7/8, and weight of 3413 g (7 lb 8.4 oz) on 08/08/2024. Following delivery the baby required transfer for NICU support but the mother has done extremely well with prompt return of bowel and bladder function, she is ambulating independently, and tolerating a regular diet. She will be discharged at this time to home in an afebrile normotensive condition after counseling regarding precautionary symptoms, limitations of activity, medications, and plans for follow-up which will be in 2 weeks. She will resume all preadmission medications except labetalol and use [id number] analgesics for pain relief. Peripartum Data Infant Delivery Method: Natural Vaginal Laceration Description: Periurethral - 1st Degree and Perineal - 1st Degree Episiotomy description: None Procedures: Continuous lumbar epidural Spontaneous vaginal delivery with repair of first-degree perineal laceration complications: none 1: Gender: Male Disposition of : [facility]) Status at Discharge Cognitive/behavioral status at discharge: oriented Functional status at discharge: independent ambulation Overall status at discharge: patient is progressing back to baseline Time Spent with Patient Time attestation: Total time spent providing and/or coordinating discharge services: Objective Labs 08/09/24 06:13 08/09/24 06:13 Labs: Laboratory Results - last 24 hr 08/09/24 06:13 WBC 11.3 H RBC 3.10 L Hgb 9.2 L Hct 27.7 L MCV 89.5 MCH 29.8 MCHC 33.3 RDW 14.9 H Plt Count 295 Neut % (Auto) 72.4 Lymph % (Auto) 18.0 L [place] % (Auto) 8.9 Eos % (Auto) 0.4 L Baso % (Auto) 0.3 Neut # (Auto) 8200 H Lymph # (Auto) 2000 [place] # (Auto) 1000 H Eos # (Auto) 0 Baso # (Auto) 0 Sodium 134 L Potassium 3.2 L Chloride 106 Carbon Dioxide 24 BUN 11 Creatinine 0.67 Estimated GFR > 60 BUN/Creatinine Ratio 16.4 Glucose 88 Calcium 7.1 L Total Bilirubin 0.3 AST 39 H ALT 44 H Alkaline Phosphatase 189 H Total Protein 5.3 L Albumin 2.7 L Globulin 2.6 Albumin/Globulin Ratio 1.0 Exam Const General: cooperative and comfortable Nutritional Appearance: average body habitus Orientation: alert and oriented x3 HENMT Head: normal to inspection, atraumatic and abrasion Ears: hearing grossly normal bilaterally Face and sinus: face symmetric Eyes General: appearance normal, both eyes and all related structures Conjunctivae: conjunctivae normal Sclera: sclerae normal EOM: EOM intact bilaterally Neck Neck: normal visual inspection Resp Effort & Inspection: normal respiratory effort and able to speak in complete sentences Auscultation: clear to auscultation bilaterally Cardio Rate: regular rate Rhythm: regular rhythm Heart Sounds: S1 normal, S2 normal and no murmurs GI Inspection: normal to inspection Palpation: soft, no hepatosplenomegaly and mass (Nontender fundus, U -3) External Female Exam: other (No significant bleeding noted) Extrem General: no calf tenderness Psych Appearance: grossly normal Mental Status: mental status grossly normal Speech and Movement: speech and movement normal Mood: congruent mood Affect: normal affect Attitude: cooperative Thought Process: normal Thought Content: normal Judgment: judgment good Discharge Plan Discharge Plan Patient Disposition: Home Provider Discharge Comment: Please review the written instructions you received when you were discharged from the hospital. Your follow-up appointment is scheduled for 6 weeks after delivery and we look forward to seeing you then. If however in the meanwhile you have any issues, concerns, or questions, please contact the office either by phone at [phone], or via the patient portal. Discharge orders & Medications Prescriptions: Continued sertraline 50 mg tablet 50 mg PO DAILY Qty: 30 6RF Rx Instructions: Take 1/2 tablet daily for the 1st 6-10 days, then 1 tab daily vit-ferrous sulfat-FA 27 mg iron- 0.8 mg tablet PO lamotrigine 25 mg tablet 50 mg PO BID folic acid 1 mg tablet 5 mg PO DAILY nifedipine 30 mg tablet extended release 30 mg PO BID Qty: 60 6RF Discontinued labetalol 200 mg tablet 200 mg PO BID Qty: 60 4RF Follow up/Referrals: Yao Sifuentes MD [Physician] - (Your six week follow up appointment with Dr. Sifuentes is scheduled for September 19 @ 11:30am.) Discharge Health Status Multidrug resistant organism: No MDRO Diet/Activity/Treatments Diet: Diet as Tolerated Activity: As tolerated Other treatments: [id number]-aamfhyc Tylenol and/or ibuprofen may be used for additional pain relief [id number]-[id number] stool softeners and/or MiraLax may be used as needed for constipation. Skin/Wound/Dressing Care Report to your healthcare provider any signs of infection, such as:: chills, fever, increased pain, unusual drainage and unusual redness Dressing: N/A Visit Report/Discharge Packet Instructions: DI for Labor and Delivery, Vaginal , DI for and Nipple Soreness Stand Alone Forms: Discharge: Care, Patient Portal/API, Stroke Signs & Symptoms Discharge Data Primary Care Provider: ProviderBrunilda
[2024-08-09] MEDS: WITCH HAZEL/GLYCERIN PADS 1 EACH TOP (07:56)
[2024-08-09 08:39] VITALS: BP 117/81; PULSE 79; RESP 18; TEMP 36.7
[2024-08-09] MEDS: DOCUSATE 100 MG CAPSULE PO (09:17)
[2024-08-09] MEDS: lamoTRIgine 100 MG TABLET 50 MG PO (09:17)
[2024-08-09] MEDS: SERTRALINE 50 MG TABLET PO (09:17)
[2024-08-09] MEDS: NIFEdipine 30 MG TAB ER PO (09:17)
[2024-08-09] MEDS: ENOXAPARIN 40 MG/0.4 ML SYRINGE SUBCUT (09:19)
== END 2024-08-09 10:15 | disposition home or self-care (01) | DRG 806 ==
PROVIDERS: Family Medicine; Admitting Provider Obstetrics & Gynecology; Visit Provider Obstetrics & Gynecology
DX: O11.4 Pre-existing hypertension with pre-eclampsia, complicating childbirth (principal); G40.802 Other epilepsy, not intractable, without status epilepticus; Z37.0 Single live birth; O99.354 Diseases of the nervous system complicating childbirth; O76 Abnormality in fetal heart rate and rhythm complicating labor and delivery; Z3A.37 37 weeks gestation of pregnancy; O70.0 First degree perineal laceration during delivery
CPT/HCPCS: 36415; 59050; 59200; 59400; 80053; 80076; 82570; 83735; 84156; 84550; 85025; 86850; 86900; 86901; G0379; J1650; J2405; J2590; J3475

== ENCOUNTER → 2025-07-10 13:43 | Outpatient (CLI) | payer OTHER, SELFPAY ==
--- NOTE | 2025-07-10 13:44 | DI.MRI.S_ITS ---
PROCEDURE: MR KNEE LT WO CON
== END ==
PROVIDERS: PCP Family Medicine; Referring Provider Family Medicine; Visit Provider Orthopaedic Surgery
DX: S83.272A Complex tear of lateral meniscus, current injury, left knee, initial encounter (principal); S83.8X2D Sprain of other specified parts of left knee, subsequent encounter; M94.262 Chondromalacia, left knee; M25.462 Effusion, left knee
CPT/HCPCS: 73721

== ENCOUNTER 2025-07-29 09:02 | Emergency (ER) | payer OTHER, SELFPAY ==
[2025-07-29 09:25] VITALS: BP 137/87; PULSE 87; RESP 16; TEMP 37.1; O2SAT 98; BMI 33.8
--- NOTE | 2025-07-29 09:29 | ED.SKABFB ---
HPI - Skin/Abscess/Foreign Bdy General Chief complaint: Skin/Abscess/Foreign Body Stated complaint: Clogged milk ducts right breast. 3 days Time Seen by Provider: 07/29/25 09:26 Source: patient Mode of arrival: Ambulatory History of Present Illness HPI narrative: Patient is a healthy 29-year-old female presenting to day with right breast pain. Concern for mastoiditis she is currently breast-feeding trying to wean off noticed that she had a clogged duct about 2 days ago. She works in a medical office they took her vitals noted that she was hypothermic with a temperature of 95? and a heart rate of 110 sent here for sepsis rule out. Vitals are here are now stable. She reports pain she has tried multiple home remedies which have not worked continues to try and breast feed. Related Data Previous Rx's ?Medication ?Instructions ?Recorded cyclobenzaprine 10 mg tablet 10 mg PO BEDTIME PRN muscle spasm 06/06/25 #30 tabs sumatriptan succinate 25 mg tablet 25 mg PO .COMPLEX #14 tabs 06/10/25 venlafaxine 37.5 mg 37.5 mg PO DAILY #90 tabs 06/11/25 tablet,extended release 24 hr cephalexin 500 mg capsule 500 mg PO TID #21 caps 07/29/25 cephalexin 500 mg tablet 500 mg PO BID #14 tabs 07/29/25 venlafaxine 37.5 mg 37.5 mg PO DAILY #90 caps 07/29/25 capsule,extended release 24 hr Allergies Allergy/AdvReac Type Severity Reaction Status Date / Time fentanyl AdvReac Severe Seizure Verified 07/29/25 09:25 meperidine (From Demerol) AdvReac Severe Seizure Verified 07/29/25 09:25 Patient History Medical History Meniscal injury Gestational hypertension w/o significant proteinuria in 3rd trimester Eczema (~2022) Osteoarthritis (~2022) PTSD (post-traumatic stress disorder) (~2019) Tic disorder (~2021) Fracture (~2018) Foot pain (~2022) Ankle pain (~2022) Hypertension Torn meniscus (~2022) Anxiety (~2019) Osteochondral defect of ankle Wrist fracture (~2018) Tonsillar hypertrophy Seizures (~2020) Heart murmur Surgical History Anesthesia History of tonsillectomy and adenoidectomy (~2020) [place] teeth removed (~2015) Family History Brother Seizure Autism Mother History of recurrent miscarriages Sister Preeclampsia Seizure Grandmother Diabetes mellitus History of heart disease Stroke Father Hypertension Grandfather Diabetes mellitus Grandmother Hyperlipidemia Social History marital status: number of children: 0 household members: spouse, friend(s) and none lives independently: Yes caregiver/support person: No housing: house pets and animals: Yes (1 dog, 1 cat) education level: college (some college) occupational status: employed (active duty [employer]) current occupational exposures/hazards: No (office job) special bernadine needs: No travel history: over 6 months ago other: occasionally vapes nicotine seatbelt use: always water heater temp set < 120 deg: Yes working smoke detector in home: Yes fire extinguisher in home: No carbon monox detector in home: Yes firearms in home: Yes firearms unloaded and locked: No (mostly) do you feel safe at home: Yes Smoking Status: Former smoker Tobacco: How many years used: 5 (off and on, mostly vaping) alcohol intake: former (~2-4 hard ciders/week when not ) substance use type: marijuana during the past year weight has: increased > 10 lbs well-balanced diet: daily or most days daily servings fruits/ve-4 caffeine: Yes (AM cup coffee) Type(s) of exercise: walking and weight lifting Smoking Status: Former smoker tobacco type: vaping alcohol intake frequency: 0-2 drinks per day Exam Initial Vital Signs Initial Vital Signs: Vital Signs Temperature 98.7 F 07/29/25 09:25 Pulse Rate 87 07/29/25 09:25 Respiratory Rate 16 07/29/25 09:25 Blood Pressure 137/87 07/29/25 09:25 Pulse Oximetry 98 07/29/25 09:25 Oxygen Delivery Method Room Air 07/29/25 09:25 GENERAL: Alert pleasant well-appearing 29-year-old female and in no acute distress. HEENT: Head atraumatic,EOMI, pupils reactive, face symmetric, moist mucous membranes CARDIOVASCULAR: Regular rate and rhythm without murmurs, rubs or gallops. RESPIRATORY: Breath sounds equal bilaterally, no wheezes rales or rhonchi. EXTREMITIES: Normal range of motion, no clubbing or edema. Neurovascularly intact NEUROLOGICAL: Alert and oriented x4.Normal gait and speech. SKIN: Right breast small area of redness no significant fluctuation or swelling but tender and warm to touch about 3 x 3 cm Course Orders Ordered: ED Orders 07/29/25 09:50 Blood Culture Stat CBC Auto Diff [Complete Blood Count AUTO DIFF] Stat CMP [Comprehensive Metabolic Panel] Stat Lactate (Lactic Acid) Stat Vital Signs Vital signs: Vital Signs - 8 hr 07/29/25 09:25 07/29/25 10:51 Temperature 98.7 F Pulse Rate 87 80 Respiratory Rate 16 16 Blood Pressure 137/87 114/68 Pulse Oximetry 98 98 Oxygen Delivery Method Room Air Room Air MDM - Skin/Abscess/Foreign Bdy Lab Data 07/29/25 09:50 07/29/25 09:50 Labs: Lab Results 07/29/25 Range/Units 09:50 WBC 7.6 (4.5-11.0) X10^3/uL RBC 4.49 (4.0-5.2) X10^6/uL Hgb 13.0 (12.0-16.0) g/dL Hct 38.9 (36-46) % MCV 86.7 (80-100) fL MCH 28.9 (26-34) PG MCHC 33.3 (30-36) % RDW 14.3 (11.6-14.8) % Plt Count 438 H (150-400) X10^3/uL Neut % (Auto) 60.9 (50-75) % Lymph % (Auto) 30.9 (25-40) % [place] % (Auto) 5.5 (3-14) % Eos % (Auto) 1.4 L (2-4) % Baso % (Auto) 1.3 (0-2) % Neut # (Auto) 4700 (1464-0179) /uL Lymph # (Auto) 2400 (1023-6669) /uL [place] # (Auto) 400 (0-900) /uL Eos # (Auto) 100 (0-450) /uL Baso # (Auto) 100 (0-100) /uL Sodium 142 (137-145) mmol/L Potassium 3.7 (3.4-5.1) mmol/L Chloride 105 (98-107) mmol/L Carbon Dioxide 26 (22-32) mmol/L BUN 11 (7-17) mg/dL Creatinine 0.61 (0.52-1.04) mg/dL Estimated GFR > 60 (>60) mL/min BUN/Creatinine Ratio 18.0 (6-22) Glucose 91 (70-99) mg/dL Lactate 1.1 (0.7-2.1) mmol/L Calcium 9.2 (8.4-10.2) mg/dL Total Bilirubin 0.4 (0.2-1.3) mg/dL AST 25 (14-36) IU/L ALT 20 (<35) IU/L Alkaline Phosphatase 69 (38-126) U/L Total Protein 8.5 H (6.3-8.2) g/dL Albumin 5.0 (3.5-5.0) g/dL Globulin 3.5 (1.7-4.1) g/dL Albumin/Globulin Ratio 1.4 (1.0-2.8) MDM Narrative Medical decision making narrative: Patient is a 29-year-old female with current right breast pain and probable clogged milk stuck. Vitals are stable here not tachycardic or febrile or hypothermic. Which is reassuring. Blood work is also reassuring she has no leukocytosis lactate of 1.1 and normal electrolytes. At this time we will go ahead and treat her for mastitis no concern for breast abscess at this time, suspect clogged duct. No need for imaging. Okay to follow-up with PCP. Discharge Plan Departure Patient Disposition: Home Clinical Impression: Mastitis Instructions: Mastitis Activity Restrictions/Additional Instructions: *You have been diagnosed with mastitis *What to do: At this time continue warm compresses continue breast-feeding pumping, continue manipulation of the breath *Continue to take medications as directed Keflex 500 mg 3 times a day *Follow up with your primary care provider in 2-3 days or call [phone] *Return to ER if you should have increasing redness swelling pain fever or any new, worsening or concerning symptoms Prescriptions: New cephalexin 500 mg capsule 500 mg PO TID Qty: 21 0RF No Action cephalexin 500 mg tablet 500 mg PO BID Qty: 14 0RF cyclobenzaprine 10 mg tablet 10 mg PO BEDTIME PRN (Reason: muscle spasm) Qty: 30 0RF sumatriptan succinate 25 mg tablet 25 mg PO .COMPLEX Qty: 14 0RF Rx Instructions: 25 mg orally; take onne tab, if no mprovement, repeat in 1 hr venlafaxine 37.5 mg tablet extended release 24hr 37.5 mg PO DAILY Qty: 90 3RF Rx Instructions: start 37.5mg daily x5-7 days then increase to 75mg daily venlafaxine 37.5 mg capsule,extended release 24hr 37.5 mg PO DAILY Qty: 90 0RF Referrals: Franchesca Hinson MD [Primary Care Provider, Family Practice] Stand Alone Forms: Patient Portal/API
[2025-07-29 10:09] LABS: Add Manual Diff / Slide Review NO; Hematocrit 38.9 % (36-46); Hemoglobin 13.0 g/dL (12.0-16.0); Lymphocytes Absolute Auto 2400 /uL (1100-4500); Mean Corpuscular HGB Conc 33.3 % (30-36); Mean Corpuscular Hemoglobin 28.9 PG (26-34); Mean Corpuscular Volume 86.7 fL (80-100); Platelet Count 438 X10^3/uL (150-400)
[2025-07-29 10:19] LABS: Alanine Aminotransferase 20 IU/L (<35); Albumin 5.0 g/dL (3.5-5.0); Albumin Globulin Ratio 1.4 (1.0-2.8); Alkaline Phosphatase 69 U/L (38-126); Blood Urea Nitrogen 11 mg/dL (7-17); Calcium 9.2 mg/dL (8.4-10.2); Carbon Dioxide 26 mmol/L (22-32); Chloride 105 mmol/L (98-107); Estimated Glomerular Filt Rate > 60 mL/min (>60); Globulin 3.5 g/dL (1.7-4.1); Glucose 91 mg/dL (70-99); HEMOLYSIS 19 (0-50); Potassium 3.7 mmol/L (3.4-5.1); Sodium 142 mmol/L (137-145); Total Protein 8.5 g/dL (6.3-8.2)
[2025-07-29 10:20] LABS: Lactate (Lactic Acid) 1.1 mmol/L (0.7-2.1)
[2025-07-29 10:51] VITALS: BP 114/68; PULSE 80; RESP 16; O2SAT 98
== END 2025-07-29 10:51 | disposition home or self-care (01) ==
PROVIDERS: Emergency Provider Emergency Medicine; PCP Family Medicine
DX: N61.0 Mastitis without abscess (principal)
CPT/HCPCS: 36415; 80053; 83605; 85025; 87040; 99283